=== PATIENT | male | born 1950 | race Caucasian/White ===

== ENCOUNTER → 2019-06-24 09:38 | Outpatient (CLI) | payer MEDICARE, SELFPAY | PROVIDERS: Referring Provider Physical Medicine & Rehabilitation; Visit Provider Physical Medicine & Rehabilitation | DX: M54.2 Cervicalgia (principal); Z53.20 Procedure and treatment not carried out because of patient's decision for unspecified reasons ==

== ENCOUNTER → 2020-01-11 11:22 | Outpatient (CLI) | payer MEDICARE, MEDICAID, SELFPAY ==
[2020-01-11 12:20] LABS: Add Manual Diff / Slide Review NO; Basophils Absolute Auto 0 /uL (0-100); Basophils Percent Auto 0.4 % (0-2); Eosinophils Absolute Auto 100 /uL (0-450); Eosinophils Percent Auto 1.6 % (2-4); Hematocrit 44.8 % (41-53); Hemoglobin 14.5 g/dL (13.5-17.5); Lymphocytes Absolute Auto 1700 /uL (1100-4500); Lymphocytes Percent Auto 23.2 % (25-40); Mean Corpuscular HGB Conc 32.4 % (30-36); Mean Corpuscular Hemoglobin 30.6 PG (26-34); Mean Corpuscular Volume 94.2 fL (80-100); Monocytes Absolute Auto 600 /uL (0-900); Monocytes Percent Auto 8.3 % (3-14); Neutrophils Absolute Auto 4800 /uL (1500-7000); Neutrophils Percent Auto 66.5 % (50-75); Platelet Count 243 X10^3/uL (150-400); Red Blood Cell Count 4.76 X10^6/uL (4.5-5.9); Red Cell Distribution Width 13.4 % (11.6-14.8); White Blood Cell Count 7.2 X10^3/uL (4.5-11.0)
[2020-01-11 13:04] LABS: Alanine Aminotransferase 23 IU/L (<50); Albumin 4.5 g/dL (3.5-5.0); Albumin Globulin Ratio 1.7 (1.0-2.8); Alkaline Phosphatase 81 U/L (38-126); Aspartate Aminotransferase 27 IU/L (17-59); BUN Creatinine Ratio 24.3 (6-22); Bilirubin Total 0.6 mg/dL (0.2-1.3); Blood Urea Nitrogen 17 mg/dL (9-20); Calcium 9.4 mg/dL (8.4-10.2); Carbon Dioxide 30 mmol/L (22-32); Chloride 105 mmol/L (98-107); Cholesterol 215 mg/dL (140-199); Estimated Glomerular Filt Rate > 60.0 mL/min (>60); Globulin 2.6 g/dL (1.7-4.1); Glucose 86 mg/dL (80-110); HDL Cholesterol 54 mg/dL (40-60); HEMOLYSIS < 15 (0-50); LDL Cholesterol Calculated 143 mg/dL (<100); Potassium 4.1 mmol/L (3.4-5.1); Sodium 141 mmol/L (137-145); Total Protein 7.1 g/dL (6.3-8.2); Triglycerides 90 mg/dL (35-150)
== END ==
DX: G80.1 Spastic diplegic cerebral palsy (principal); Z79.891 Long term (current) use of opiate analgesic; R79.89 Other specified abnormal findings of blood chemistry; Z86.79 Personal history of other diseases of the circulatory system
CPT/HCPCS: 36415; 80053; 80061; 85025

== ENCOUNTER → 2020-06-07 11:19 | Outpatient (CLI) | payer MEDICARE, MEDICAID, SELFPAY ==
[2020-06-07 11:51] LABS: Add Manual Diff / Slide Review NO; Basophils Absolute Auto 0 /uL (0-100); Basophils Percent Auto 0.6 % (0-2); Eosinophils Absolute Auto 200 /uL (0-450); Eosinophils Percent Auto 2.4 % (2-4); Hematocrit 42.3 % (41-53); Hemoglobin 13.9 g/dL (13.5-17.5); Lymphocytes Absolute Auto 2100 /uL (1100-4500); Mean Corpuscular HGB Conc 32.8 % (30-36); Mean Corpuscular Hemoglobin 30.7 PG (26-34); Mean Corpuscular Volume 93.6 fL (80-100); Monocytes Absolute Auto 600 /uL (0-900); Monocytes Percent Auto 7.3 % (3-14); Neutrophils Absolute Auto 5000 /uL (1500-7000); Neutrophils Percent Auto 62.7 % (50-75); Platelet Count 231 X10^3/uL (150-400); Red Blood Cell Count 4.52 X10^6/uL (4.5-5.9); Red Cell Distribution Width 13.6 % (11.6-14.8); White Blood Cell Count 7.9 X10^3/uL (4.5-11.0)
[2020-06-07 14:15] LABS: Alanine Aminotransferase 16 IU/L (<50); Albumin 4.1 g/dL (3.5-5.0); Albumin Globulin Ratio 1.8 (1.0-2.8); Alkaline Phosphatase 69 U/L (38-126); Aspartate Aminotransferase 21 IU/L (17-59); BUN Creatinine Ratio 17.6 (6-22); Bilirubin Total 0.6 mg/dL (0.2-1.3); Blood Urea Nitrogen 13 mg/dL (9-20); Calcium 10.2 mg/dL (8.4-10.2); Carbon Dioxide 26 mmol/L (22-32); Chloride 105 mmol/L (98-107); Estimated Glomerular Filt Rate > 60.0 mL/min (>60); Globulin 2.3 g/dL (1.7-4.1); Glucose 106 mg/dL (80-110); HEMOLYSIS < 15 (0-50); Potassium 4.4 mmol/L (3.4-5.1); Sodium 138 mmol/L (137-145); Total Protein 6.4 g/dL (6.3-8.2)
[2020-06-07 14:46] LABS: Prostate Specific Antigen 2.56 ng/mL (0.10-4.00)
== END ==
PROVIDERS: Referring Provider Nurse Practitioner Family; Visit Provider Nurse Practitioner Family
DX: Z01.818 Encounter for other preprocedural examination (principal); Z12.5 Encounter for screening for malignant neoplasm of prostate
CPT/HCPCS: 36415; 80053; 84153; 85025; G0103

== ENCOUNTER → 2021-03-28 09:47 | Outpatient (CLI) | payer MEDICARE, MEDICAID, SELFPAY ==
[2021-03-28 11:10] LABS: Add Manual Diff / Slide Review NO; Basophils Absolute Auto 0 /uL (0-100); Basophils Percent Auto 0.5 % (0-2); Eosinophils Absolute Auto 100 /uL (0-450); Eosinophils Percent Auto 1.5 % (2-4); Hematocrit 41.1 % (41-53); Hemoglobin 13.9 g/dL (13.5-17.5); Lymphocytes Absolute Auto 1700 /uL (1100-4500); Lymphocytes Percent Auto 28.9 % (25-40); Mean Corpuscular HGB Conc 33.8 % (30-36); Mean Corpuscular Hemoglobin 31.4 PG (26-34); Mean Corpuscular Volume 92.8 fL (80-100); Monocytes Absolute Auto 500 /uL (0-900); Monocytes Percent Auto 8.3 % (3-14); Neutrophils Absolute Auto 3500 /uL (1500-7000); Neutrophils Percent Auto 60.8 % (50-75); Platelet Count 241 X10^3/uL (150-400); Red Blood Cell Count 4.43 X10^6/uL (4.5-5.9); Red Cell Distribution Width 13.3 % (11.6-14.8); White Blood Cell Count 5.8 X10^3/uL (4.5-11.0)
[2021-03-28 11:40] LABS: Alanine Aminotransferase 22 IU/L (<50); Albumin 4.4 g/dL (3.5-5.0); Albumin Globulin Ratio 1.9 (1.0-2.8); Alkaline Phosphatase 64 U/L (38-126); Aspartate Aminotransferase 25 IU/L (17-59); BUN Creatinine Ratio 20.8 (6-22); Bilirubin Total 0.7 mg/dL (0.2-1.3); Blood Urea Nitrogen 16 mg/dL (9-20); Carbon Dioxide 28 mmol/L (22-32); Chloride 107 mmol/L (98-107); Estimated Glomerular Filt Rate > 60.0 mL/min (>60); Globulin 2.3 g/dL (1.7-4.1); Glucose 97 mg/dL (80-110); HEMOLYSIS < 15 (0-50); Potassium 4.4 mmol/L (3.4-5.1); Sodium 142 mmol/L (137-145); Total Protein 6.7 g/dL (6.3-8.2)
[2021-03-28 12:07] LABS: Prostate Specific Antigen Scrn 2.53 ng/mL (0.1-4.0)
== END ==
PROVIDERS: PCP Nurse Practitioner Family; Referring Provider Nurse Practitioner Family; Visit Provider Nurse Practitioner Family
DX: Z79.891 Long term (current) use of opiate analgesic (principal); Z12.5 Encounter for screening for malignant neoplasm of prostate
CPT/HCPCS: 36415; 80053; 85025; G0103

== ENCOUNTER 2022-06-17 10:42 | Emergency (ER) | payer OTHER, MEDICAID, SELFPAY ==
[2022-06-17] VITALS (11 sets, daily range): BP systolic 153–181; BP diastolic 72–88; PULSE 62–77; RESP 16–20; TEMP 36.3; O2SAT 92–94
[2022-06-17 11:08] LABS: Add Manual Diff / Slide Review NO; Basophils Absolute Auto 0 /uL (0-100); Basophils Percent Auto 0.5 % (0-2); Eosinophils Absolute Auto 100 /uL (0-450); Eosinophils Percent Auto 2.2 % (2-4); Hematocrit 41.5 % (41-53); Hemoglobin 14.1 g/dL (13.5-17.5); Lymphocytes Absolute Auto 1100 /uL (1100-4500); Mean Corpuscular Hemoglobin 31.3 PG (26-34); Mean Corpuscular Volume 92.1 fL (80-100); Monocytes Absolute Auto 600 /uL (0-900); Monocytes Percent Auto 9.3 % (3-14); Neutrophils Absolute Auto 4100 /uL (1500-7000); Platelet Count 195 X10^3/uL (150-400); Red Blood Cell Count 4.51 X10^6/uL (4.5-5.9); Red Cell Distribution Width 12.9 % (11.6-14.8); White Blood Cell Count 5.9 X10^3/uL (4.5-11.0)
[2022-06-17 11:21] LABS: Alanine Aminotransferase 25 IU/L (<50); Albumin 4.2 g/dL (3.5-5.0); Albumin Globulin Ratio 1.4 (1.0-2.8); Alkaline Phosphatase 78 U/L (38-126); Aspartate Aminotransferase 22 IU/L (17-59); BUN Creatinine Ratio 12.4 (6-22); Blood Urea Nitrogen 20 mg/dL (9-20); Calcium 9.9 mg/dL (8.4-10.2); Carbon Dioxide 34 mmol/L (22-32); Chloride 100 mmol/L (98-107); Estimated Glomerular Filt Rate 45 mL/min (>60); Globulin 2.9 g/dL (1.7-4.1); Glucose 89 mg/dL (80-110); HEMOLYSIS < 15 (0-50); Lipase 44 U/L (23-300); Potassium 4.7 mmol/L (3.4-5.1); Sodium 140 mmol/L (137-145); Total Protein 7.1 g/dL (6.3-8.2)
--- NOTE | 2022-06-17 11:39 | ED_ITS ---
HPI - Abdominal Pain General Chief Complaint: Abdominal Pain Stated Complaint: possible Appendicitis/back pain Time Seen by Provider: 06/17/22 10:51 Source: patient Mode of arrival: Wheelchair History of Present Illness HPI narrative: Patient is 71-year-old male history of cerebral palsy, next stimulator, arthritis, chronic pain presenting today with right lower quadrant pain. He reports that it has been going on for about a week not necessarily radiating. He has been constipated off and on but has had bowel movements. He has low-g rade nausea no vomiting. He is had a decrease in appetite. Denies any chest pain or shortness of breath. He does report that his legs and ankles are more swollen than normal. Related Data Home Medications Medication Instructions Recorded Confirmed celecoxib 200 mg capsule (Celebrex) 200 mg PO QDAY ##0 06/10/11 06/17/22 baclofen 10 mg tablet 10 mg PO TID PRN Muscle Spasm 06/17/22 06/17/22 fluticasone propionate 50 1 spray intranasal DAILY 06/17/22 06/17/22 mcg/actuation nasal spray,suspension morphine 15 mg tablet,extended 15 mg PO BID 06/17/22 06/17/22 release oxycodone 10 mg tablet 10 mg PO TID PRN Pain (Scale Score 06/17/22 06/17/22 7-10) Previous Rx's Medication Instructions Recorded ondansetron 4 mg disintegrating 4 mg PO Q8H PRN nausea and 06/17/22 tablet vomiting #10 tabs Allergies Allergy/AdvReac Type Severity Reaction Status Date / Time No Known Drug Allergies Allergy Verified 06/17/22 11:11 Review of Systems Review of Systems ROS Unobtainable: All systems reviewed & are unremarkable except as noted in HPI and below Patient History Medical History (Updated 06/17/22 @ 14:06 by Cintia Cedeño DO) Cerebral palsy Chronic pain Social History Smoking Status: Never smoker Smoking Status: Never smoker alcohol intake frequency: 0-2 drinks per day Substance Use Type: does not use Exam Initial Vital Signs Initial Vital Signs: Vital Signs Pulse Rate 74 06/17/22 10:50 Blood Pressure 181/88 H 06/17/22 10:50 Pulse Oximetry 92 06/17/22 10:50 GENERAL: Alert 71-year-old male with cerebral palsy features awake alert oriented HEENT: Head atraumatic,EOMI, pupils reactive, face symmetric, moist mucous membranes CARDIOVASCULAR: Regular rate and rhythm without murmurs, rubs or gallops. RESPIRATORY: Breath sounds equal bilaterally, no wheezes rales or rhonchi. ABDOMEN: Soft, mild right lower quadrant tenderness no guarding no EXTREMITIES: Normal range of motion, no clubbing or edema. Neurovascularly intact NEUROLOGICAL: Alert and oriented x4. SKIN: Hyperpigmented skin noted on abdomen but right-sided only. Patient reports that it is from a heating pad from a couple weeks. That is old and not new Course Orders Ordered: ED Orders 06/17/22 11:40 CT abdomen pelvis w con Stat Discontinued Medications Hydromorphone HCl (Hydromorphone 0.5 Mg Inj) 0.5 mg IV NOW ONE Stop: 06/17/22 11:41 Last Admin: 06/17/22 11:52 Dose: 0.5 mg Documented By: JOB Sodium Chloride (Normal Saline 0.9%) 1,000 mls @ 1,000 mls/hr IV BOLUS ONE Stop: 06/17/22 12:39 Last Infusion: 06/17/22 12:39 Dose: 0 mls/hr Documented By: Admin: 06/17/22 11:46 Dose: 1,000 mls/hr Documented By: JOB Ondansetron HCl (Ondansetron 4 Mg Odt) 4 mg PO NOW PRN PRN Reason: Nausea And Vomiting Ondansetron HCl (Ondansetron 4 Mg/2 Ml Inj) 4 mg IV NOW PRN PRN Reason: Nausea And Vomiting Vital Signs Vital signs: Vital Signs - 8 hr 06/17/22 12:23 06/17/22 12:23 06/17/22 12:30 Pulse Rate 65 66 Respiratory Rate 20 Blood Pressure 153/72 H Pulse Oximetry 92 06/17/22 12:31 06/17/22 12:31 06/17/22 13:00 Pulse Rate 66 Respiratory Rate Blood Pressure 154/83 H 167/86 H Pulse Oximetry 06/17/22 13:00 06/17/22 13:30 06/17/22 13:30 Pulse Rate 62 72 Respiratory Rate Blood Pressure 157/77 H Pulse Oximetry 93 06/17/22 14:00 06/17/22 14:00 Pulse Rate 77 Respiratory Rate Blood Pressure 161/85 H Pulse Oximetry 93 MDM - Abdominal Pain Lab Data 06/17/22 10:57 06/17/22 10:57 Labs: Lab Results 06/17/22 06/17/22 Range/Units 10:57 10:57 WBC 5.9 (4.5-11.0) X10^3/uL RBC 4.51 (4.5-5.9) X10^6/uL Hgb 14.1 (13.5-17.5) g/dL Hct 41.5 (41-53) % MCV 92.1 (80-100) fL MCH 31.3 (26-34) PG MCHC 34.0 (30-36) % RDW 12.9 (11.6-14.8) % Plt Count 195 (150-400) X10^3/uL Neut % (Auto) 69.0 (50-75) % Lymph % (Auto) 19.0 L (25-40) % Burnett % (Auto) 9.3 (3-14) % Eos % (Auto) 2.2 (2-4) % Baso % (Auto) 0.5 (0-2) % Neut # (Auto) 4100 (6106-8777) /uL Lymph # (Auto) 1100 (8097-3006) /uL Burnett # (Auto) 600 (0-900) /uL Eos # (Auto) 100 (0-450) /uL Baso # (Auto) 0 (0-100) /uL Sodium 140 (137-145) mmol/L Potassium 4.7 (3.4-5.1) mmol/L Chloride 100 (98-107) mmol/L Carbon Dioxide 34 H (22-32) mmol/L BUN 20 (9-20) mg/dL Creatinine 1.61 H (0.66-1.25) mg/dL Estimated GFR 45 L (>60) mL/min BUN/Creatinine Ratio 12.4 (6-22) Glucose 89 (80-110) mg/dL Calcium 9.9 (8.4-10.2) mg/dL Total Bilirubin 1.0 (0.2-1.3) mg/dL AST 22 (17-59) IU/L ALT 25 (<50) IU/L Alkaline Phosphatase 78 (38-126) U/L Total Protein 7.1 (6.3-8.2) g/dL Albumin 4.2 (3.5-5.0) g/dL Globulin 2.9 (1.7-4.1) g/dL Albumin/Globulin Ratio 1.4 (1.0-2.8) Lipase 44 (23-300) U/L Point of care testing: Urine Dip Bedside Urine Glucose Negative Bedside Urine Bilirubin - Negative Bedside Urine Ketone - Negative Urine Specific Menan 1.015 Bedside Urine Occult Blood - Negative Bedside Urine pH 6.0 Bedside Urine Protein - Negative Bedside Urine Urobilinogen - Negative Bedside Urine Nitrite - Negative Bedside Urine Leukocytes - Negative Esterase Imaging Data CT scan - abdomen/pelvis: Radiologist's Impression: PROCEDURE:? CT ABDOMEN PELVIS W CON ? INDICATIONS:? rlq pain ? TECHNIQUE:? After the administration of IV contrast, axial sections were acquired from the lung bases to the pubic symphysis.? Coronal and sagittal reformats were performed.? For radiation dose reduction, the following was used:? automated exposure control, adjustment of mA and/or kV according to patient size. ? COMPARISON:? None. ? FINDINGS:? Image quality:? Excellent.? ? Lung bases:? Trace bilateral pleural few.? Bilateral atelectasis.? ? Heart:? RCA coronary artery calcifications. ? ? ABDOMEN: Liver:? No focal lesion. Gallbladder:? Unremarkable.? ? Biliary ducts:? Unremarkable.? ? Pancreas:? Unremarkable.? ? Spleen:? No splenomegaly.? Small splenule. Adrenal Glands:? No nodule. Kidneys and Ureters:? Mild right hydronephrosis.? Obstructing calculus at the [facility] UVJ measuring 0.3 cm, ().? Additional small bilateral punctate nonobstructing kidney stones.? ? ? Stomach and Bowel:? Stomach, small bowel loops, and colon are unremarkable.? Normal appendix, (). Peritoneum:? No abnormal intraperitoneal fluid.? No free air.? ? Ventral Wall: ? Tiny umbilical hernia. Abdominal Nodes:? No retroperitoneal or mesenteric adenopathy by size criteria.? Vessels:? Aorta and inferior vena cava are normal in size.? Moderate calcified plaque.? ? PELVIS: Pelvic Organs:? Unremarkable.? ? Bladder:? Unremarkable.? ? Pelvic Nodes: No enlarged lymph nodes.? Miscellaneous: No inguinal hernias are seen.? Right lower back spine stimulator.? ? ? Bones:? No suspicious lesion.? Multilevel DDD. ? ? IMPRESSION:? 1. Mild right hydronephrosis.? Obstructing calculus at the right UVJ measuring 0.3 cm. ? 2. Additional small bilateral nonobstructing kidney stones. ? 3. Normal appendix. ? 4. Trace pleural effusions and bibasilar atelectasis.? ? Dictated by: Ramírez Chowdary M.D. on 06/17/2022 at 12:45 ? ? [facility] Narrative Medical decision making narrative: The patient is 71-year-old male history of CP chronic pain presenting today with right lower quadrant pain. Blood work is overall reassuring without leukocytosis electrolyte abnormality . He is found to have mild IRENE with a creatinine of 1.611 year ago it was 0.7. He reports not eating or drinking very much due to some pain and constipation issues. CT confirms a 3 mm stone on the right side with mild right hydronephrosis. No evidence of appendicitis. He has multiple pain medications at home does not need anything else for pain at this time. Discharge Plan Departure Patient Disposition: Home Clinical Impression: Kidney stones Instructions: DI for Kidney Stones Activity Restrictions/Additional Instructions: *You have been diagnosed with kidney stone *What to do: This should pass on its own over the next couple of days. Please stay hydrated. *Continue to take medications as directed Zofran 4 mg every 8 hours if needed for nausea vomiting--> [facility] Continue taking Celebrex daily Continue your own pain management regimen *Follow up with your primary care provider in 2-3 days or call [phone] *Return to ER if you should have increasing pain fever persistent vomiting or any new, worsening or concerning symptoms Prescriptions: New ondansetron 4 mg tablet,disintegrating 4 mg PO Q8H PRN (Reason: nausea and vomiting) Qty: 10 0RF No Action celecoxib [Celebrex] 200 MG capsule 200 mg PO QDAY Qty: 0 baclofen 10 mg tablet 10 mg PO TID PRN (Reason: Muscle Spasm) morphine 15 mg tablet extended release 15 mg PO BID fluticasone propionate 50 mcg/actuation spray,suspension 1 spray INTRANASAL DAILY oxycodone 10 mg tablet 10 mg PO TID PRN (Reason: Pain (Scale Score 7-10)) Referrals: Rosangela Ordoñez ARNP [Primary Care Provider] - Stand Alone Forms: Patient Portal/API
--- NOTE | 2022-06-17 11:40 | DI.CT.S_ITS ---
PROCEDURE: CT ABDOMEN PELVIS W CON INDICATIONS: rlq pain TECHNIQUE: After the administration of IV contrast, axial sections were acquired from the lung bases to the pubic symphysis. Coronal and sagittal reformats were performed. For radiation dose reduction, the following was used: automated exposure control, adjustment of mA and/or kV according to patient size. COMPARISON: None. FINDINGS: Image quality: Excellent. Lung bases: Trace bilateral pleural few. Bilateral atelectasis. Heart: RCA coronary artery calcifications. ABDOMEN: Liver: No focal lesion. Gallbladder: Unremarkable. Biliary ducts: Unremarkable. Pancreas: Unremarkable. Spleen: No splenomegaly. Small splenule. Adrenal Glands: No nodule. Kidneys and Ureters: Mild right hydronephrosis. Obstructing calculus at the right UVJ measuring 0.3 cm, (). Additional small bilateral punctate nonobstructing kidney stones. Stomach and Bowel: Stomach, small bowel loops, and colon are unremarkable. Normal appendix, (64). Peritoneum: No abnormal intraperitoneal fluid. No free air. Ventral Wall: Tiny umbilical hernia. Abdominal Nodes: No retroperitoneal or mesenteric adenopathy by size criteria. Vessels: Aorta and inferior vena cava are normal in size. Moderate calcified plaque. PELVIS: Pelvic Organs: Unremarkable. Bladder: Unremarkable. Pelvic Nodes: No enlarged lymph nodes. Miscellaneous: No inguinal hernias are seen. Right lower back spine stimulator. Bones: No suspicious lesion. Multilevel DDD. IMPRESSION: 1. Mild right hydronephrosis. Obstructing calculus at the right UVJ measuring 0.3 cm. 2. Additional small bilateral nonobstructing kidney stones. 3. Normal appendix. 4. Trace pleural effusions and bibasilar atelectasis. Dictated by: Ramírez Chowdary M.D. on 06/17/2022 at 12:45 Approved by: Ramírez Chowdary M.D. on 06/17/2022 at 12:52
[2022-06-17] MEDS: SODIUM CHLORIDE 0.9% 1,000 ML 1000 ML IV (11:46)
[2022-06-17] MEDS: HYDROMORPHONE 0.5 MG INJ IV (11:52)
== END 2022-06-17 14:30 | disposition home or self-care (01) ==
PROVIDERS: Emergency Provider Emergency Medicine; PCP Nurse Practitioner Family
DX: N20.0 Calculus of kidney (principal); R11.0 Nausea; R10.9 Unspecified abdominal pain
CPT/HCPCS: 36415; 74177; 80053; 81003; 83690; 85025; 93005; 93010; 99284; J1170

== ENCOUNTER → 2022-09-30 14:07 | Outpatient (CLI) | payer OTHER, MEDICAID, SELFPAY ==
[2022-09-30 15:10] LABS: Appearance Urine UA CLEAR; Bilirubin Urine UA NEGATIVE (NEGATIVE); Color Urine UA YELLOW; Glucose Urine UA NEGATIVE (Negative); Ketones Urine UA NEGATIVE (NEGATIVE); Leukocyte Esterase Urine UA NEGATIVE (NEGATIVE); Nitrite Urine UA NEGATIVE (Negative); Occult Blood Urine UA NEGATIVE (Negative); Protein Urine UA NEGATIVE (Negative); Specific Gravity Urine UA <=1.005 (1.000-1.035); pH Urine UA 6.5 (4.5-8.0)
[2022-09-30 15:34] LABS: Bacteria Urine None Seen; Culture Indicated Urine Cult Not Indicated; RBC Urine None Seen (0-5/HPF); Squamous Epithelial Cell Urine None Seen (0-5/HPF); WBC Urine None Seen (0-5/HPF)
== END ==
PROVIDERS: PCP Pediatrics; Referring Provider Pediatrics; Visit Provider Pediatrics
DX: R39.15 Urgency of urination (principal)
CPT/HCPCS: 81001

== ENCOUNTER → 2023-03-19 09:09 | Outpatient (CLI) | payer OTHER, MEDICAID, SELFPAY ==
[2023-03-19 11:03] LABS: Alanine Aminotransferase 27 IU/L (<50); Albumin 4.2 g/dL (3.5-5.0); Albumin Globulin Ratio 1.8 (1.0-2.8); Alkaline Phosphatase 71 U/L (38-126); Aspartate Aminotransferase 24 IU/L (17-59); BUN Creatinine Ratio 23.8 (6-22); Bilirubin Total 0.8 mg/dL (0.2-1.3); Blood Urea Nitrogen 20 mg/dL (9-20); Carbon Dioxide 27 mmol/L (22-32); Chloride 102 mmol/L (98-107); Estimated Glomerular Filt Rate > 60 mL/min (>60); Globulin 2.4 g/dL (1.7-4.1); Glucose 76 mg/dL (80-110); HEMOLYSIS < 15 (0-50); Potassium 4.7 mmol/L (3.4-5.1); Sodium 138 mmol/L (137-145); Total Protein 6.6 g/dL (6.3-8.2)
== END ==
PROVIDERS: Family Provider Pediatrics; PCP Pediatrics; Referring Provider Internal Medicine; Visit Provider Internal Medicine
DX: R79.89 Other specified abnormal findings of blood chemistry (principal)
CPT/HCPCS: 36415; 80053

== ENCOUNTER → 2023-07-01 11:18 | Outpatient (CLI) | payer MEDICARE, SELFPAY ==
[2023-07-01 12:55] LABS: Hemoglobin 13.2 g/dL (13.5-17.5); Mean Corpuscular HGB Conc 33.8 % (30-36); Mean Corpuscular Hemoglobin 31.5 PG (26-34); Platelet Count 230 X10^3/uL (150-400); Red Blood Cell Count 4.19 X10^6/uL (4.5-5.9); Red Cell Distribution Width 13.1 % (11.6-14.8); White Blood Cell Count 6.1 X10^3/uL (4.5-11.0)
[2023-07-01 13:36] LABS: Alanine Aminotransferase 22 IU/L (<50); Albumin 4.3 g/dL (3.5-5.0); Albumin Globulin Ratio 1.9 (1.0-2.8); Alkaline Phosphatase 76 U/L (38-126); Aspartate Aminotransferase 23 IU/L (17-59); BUN Creatinine Ratio 26.5 (6-22); Bilirubin Total 0.6 mg/dL (0.2-1.3); Blood Urea Nitrogen 22 mg/dL (9-20); Calcium 9.9 mg/dL (8.4-10.2); Carbon Dioxide 29 mmol/L (22-32); Chloride 104 mmol/L (98-107); Cholesterol 202 mg/dL (140-199); Estimated Glomerular Filt Rate > 60 mL/min (>60); Globulin 2.3 g/dL (1.7-4.1); Glucose 84 mg/dL (80-110); HDL Cholesterol 39 mg/dL (40-60); HEMOLYSIS < 15 (0-50); LDL Cholesterol Calculated 138 mg/dL (<100); Potassium 4.5 mmol/L (3.4-5.1); Sodium 140 mmol/L (137-145); Total Protein 6.6 g/dL (6.3-8.2); Triglycerides 125 mg/dL (35-150)
== END ==
PROVIDERS: Family Provider Pediatrics; PCP Internal Medicine; Referring Provider Internal Medicine; Visit Provider Internal Medicine
DX: G80.1 Spastic diplegic cerebral palsy (principal); E78.2 Mixed hyperlipidemia
CPT/HCPCS: 36415; 80053; 80061; 85027

== ENCOUNTER → 2023-09-10 17:09 | Outpatient (CLI) | payer MEDICARE, SELFPAY ==
[2023-09-12 13:36] LABS: Fecal Immunochemical Test Negative (Negative)
== END ==
PROVIDERS: Family Provider Pediatrics; PCP Internal Medicine; Referring Provider Internal Medicine; Visit Provider Internal Medicine
DX: Z12.11 Encounter for screening for malignant neoplasm of colon (principal)
CPT/HCPCS: 82274

== ENCOUNTER 2023-12-09 13:45 | Outpatient (RCR) | payer MEDICARE, SELFPAY ==
--- NOTE | 2023-10-10 15:57 | PT.OIE ---
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 Tinea cruris Tinnitus (~2019) Venous (peripheral) insufficiency Past Surgical History (Last Reviewed 09/09/23 @ 12:29 by Ramiro Luna MD) Anesthesia History of hernia repair (~2009) History of neck surgery (~2014) History of surgery (~2018) Visit Care Team Role Provider Type Dick Venegas MD Family Provider Non-Staff Specialty: Internal Medicine Pediatrics Address: [address] [place] [address] Email: [email or web address] Ramiro Luna MD Attending Provider Physician Primary Care Provider Referring Provider Specialty: Internal Medicine Address: [address] [place] [address] Email: [email or web address] Physical Therapy Initial Evaluation PT-OP-A Visit Information Start: 10/10/23 07:27 Freq: Status: Active Protocol: Document 10/10/23 09:46 NM (Rec: 10/10/23 10:33 NM [id number]) Out-Patient Physical Therapy Visit Information Visit Information Visit Type Initial Evaluation Visit Note racihd Chacon Visit Start Time 09:46 Visit Stop Time 10:30 Visit Number 1 Evaluation Information Evaluation Date 10/10/23 Precautions Precautions Cerebral palsy, fall risk, limited L UE use, postural changes lead to dizziness PT-OP-B Current Condition Start: 10/10/23 07:27 Freq: Status: Active Protocol: Document 10/10/23 09:46 NM (Rec: 10/10/23 10:33 NM [id number]) Current Condition History of Current Condition Onset Date DOS 08/05/23 Current Complaints pain, mobility, strength History of Current Condition Pt presents s/p R TKA on . He was in a SNF following his surgery for 1 month. Presents with live-in helper, Ines. Pt was using FWW post -operatively but recently began using spc in R hand. 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 States walker aggravates L arm. Pt reports getting stronger overall since discharge from SNF. He had PT at [facility], PT. States ambulated 400 ft yesterday with spc, R knee aches him. Pt has not fallen in 1.5 years. Prior to surgery, pt was using FWW and spc. Pt also had spacer placed in his RLE due to shorter length (esta. during surgery), which has caused some cramping. Has had previous PT for knee (last fall) and for his L arm. He does some workouts at home, including sit and be fit, LAQ, marches. 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 No longer on baclofen due side effects. Pt does have stairs in his home, states can do without any struggle. Treatment Goals Patient/Caregiver Goals get up from floor, improve walking, strength PT-OP-C Subjective Start: 10/10/23 07:27 Freq: Status: Active Protocol: Document 10/10/23 09:46 NM (Rec: 10/10/23 10:33 NM [id number]) OP-PT Subjective Patient Comments Patient Comments Pt consents to participate in evaluation. States he is feeling stronger now that he is out of the SNF Patient Questionnaires Lower Extremity Functional Scale LEFS Score 15/80 OP-PT Pain Assessment Location R knee Intensity 1 Scale Used Numeric (0 - 10) Description Aching Frequency Frequent Pain Aggravating Factors ADL's,Activity,Exercise, Standing,Walking Pain Alleviating Factors Medication Other Pain Alleviating Factors biofreeze, protein drinks Comments Pain Comments Pt reports that he has more pain in his LUE than his R knee PT-OP-E Functional Tests Start: 10/10/23 07:27 Freq: Status: Active Protocol: Document 10/10/23 09:46 NM (Rec: 10/10/23 16:52 NM [id number]) Functional Tests 2 Minute Walk Test Distance 93 ft Device Used spc Comments CGA; fatiguing; mild knee pain ; strong hip ADD/valgus/ pronation PT-OP-F Manual Assessment Start: 10/10/23 07:27 Freq: Status: Active Protocol: Document 10/10/23 09:46 NM (Rec: 10/10/23 10:33 NM [id number]) Manual Assessments Soft Tissue Assessment Soft Tissue Mobility Assessment Increased tone and decreased tissue length of hamstrings B, L adductors; increased ankle DF B Joint Mobility Assessment Joint Mobility Assessment Decreased PROM and AROM of R knee, hip. Decreased AROM and increased stability due to spasticity of LLE PT-OP-G Mobility & Gait Start: 10/10/23 07:27 Freq: Status: Active Protocol: Document 10/10/23 09:46 NM (Rec: 10/10/23 16:54 NM [id number]) OP Mobility Evaluation Bed Mobility Supine to and from Sit min A Transfers Sit to Stand with min A from low chair, several attempts CGA to steady with initial balance and hand assist to spc , several attempts to rise OP Gait Assessment Gait Gait Assistance Required: Contact Guard Assist Distance (Feet) 93 Assistive Devices Assistive Device Gait Belt,Straight Cane Gait Deviations General Gait Pattern Antalgic,Decreased Stride Length,Decreased Feet Clearance,Flexed Trunk,Narrow Based Gait Factors Limiting Gait Function Factors Limiting Gait Function Abnormal Tonal Influences, Decreased Activity Tolerance, Decreased Strength,Limited Range of Motion,Pain,Poor Balance Comments Gait Comments Demos strong B hip adduction into valgus with pronation, B flexed knees and increased ankle dorsiflexion. spc in R hand with moderate dependence for stability and to assist with LLE. Decreased foot clearance PT-OP-H Neuro Start: 10/10/23 07:27 Freq: Status: Active Protocol: Document 10/10/23 09:46 NM (Rec: 10/10/23 10:33 NM [id number]) Muscle Tone Tone Assessment Left Lower Extremity Flexor Tone Description Moderate Hypertonicity Muscle Tone Comments Modified paloma scale: 3 L knee PT-OP-J Posture/Palpation/Skin Start: 10/10/23 07:27 Freq: Status: Active Protocol: Document 10/10/23 09:46 NM (Rec: 10/10/23 16:30 NM [id number]) Posture Evaluation Position Standing Head/C-Spine Posture Forward Head T-Spine Posture Increased Kyphosis Arm Posture (L) Internally Rotated Pelvis Posture Anteriorly Tilted Weight Distribution Weight Shifted Right Hip Posture (L) Internally Rotated,(L) Adducted,(R) Adducted Knee Posture (L) Genu Valgus,(R) Genu Valgus,(L) Excess Flexion,(R) Excess Flexion Patellar Posture (L) Superior,(R) Superior Ankle/Foot Posture (L) Dorsiflexed,(R) Dorsiflexed,(L) Pronated Palpation Assessment Location R knee Palpation Details No tenderness along incision or joint line, patella Increased edema along entire lower RLE to knee Skin Assessment Incisional Assessment Incision Appearance/Comments Incision intact and healing well without scabbing, no signs or symptoms of infection PT-OP-K Range of Motion Start: 10/10/23 07:27 Freq: Status: Active Protocol: Document 10/10/23 09:46 NM (Rec: 10/10/23 10:33 NM [id number]) Knee Goniometric Range of Motion Knee Right Flexion Active (degrees) 80 Extension Active (degrees) 18 Left Flexion Active (degrees) 90 Extension Active (degrees) 9 Ankle and Foot Goniometric Range of Motion Ankle and Foot Right Comments Ankle DF to neutral Left Comments Ankle DF to neutral PT-OP-M Strength Start: 10/10/23 07:27 Freq: Status: Active Protocol: Document 10/10/23 09:46 NM (Rec: 10/10/23 10:33 NM [id number]) Hip Strength Hip Manual Muscle Testing Right Flexion (L2) 3+ Fair+ Extension (S1) 3+ Fair+ Abduction 3+ Fair+ Adduction 4 Good Left Flexion (L2) 3+ Fair+ Extension (S1) 3+ Fair+ Abduction 3+ Fair+ Adduction 3+ Fair+ Comments strength influenced by tone Knee Strength Knee Manual Muscle Testing Right Flexion (S2) 3+ Fair+ Extension (L3) 3+ Fair+ Comments No pain with resisted motion Left Flexion (S2) 3+ Fair+ Extension (L3) 3+ Fair+ Ankle/Foot Strength Ankle and Foot Manual Muscle Testing Right Dorsiflexion (L4) 3 Fair Plantarflexion (S1) 3 Fair Left Dorsiflexion (L4) 3 Fair Plantarflexion (S1) 3 Fair Comments tested in sitting PT-OP-Q Treatments Start: 10/10/23 07:27 Freq: Status: Active Protocol: Document 10/10/23 09:46 NM (Rec: 10/10/23 16:30 NM [id number]) Therapeutic Exercises Sitting Exercises calf stretch Sitting Exercise Name 1. soleus, 2. gastrocnemius Side right Equipment Used gait belt Reps/Minutes 2x60 ea hamstring stretch Side right Equipment Used gait belt, foot elevated on trash can Reps/Minutes 2x60 Other Exercises self soft tissue mobilization Other Exercise Name hamstring, calf, quad Side right Equipment Used PT hand then pt hand distal > proximal Reps/Minutes 2 minutes Comments educated for gentle circular motions, can use rolling pin PT-OP-T Assessment and Plan Start: 10/10/23 07:27 Freq: Status: Active Protocol: Document 10/10/23 09:46 NM (Rec: 10/10/23 10:33 NM [id number]) Physical Therapy Assessment Rehab Potential Rehabilitation Potential Fair Evaluation Complexity Number of Personal Factors/Comorbidities 3 or More Number of Body Systems Impaired 3 Clinical Presentation at Evaluation Stable Impairments Impairments Activity Tolerance,Balance, Edema,Functional Activities, Functional Mobility,Gait, Integument,Pain,Posture,ROM, Sensation,Soft Tissue Mobility ,Strength,Tone,Transfers Goals Five Impairment R hip and knee strength 3+/5 globally Short Term Goal (STG) Pt will improve R global hip and knee strength to at least 4-/5 MMT in order to demonstrate increased strength for gait, transfers, and standing endurance STG Duration 6 weeks Correction Goal (LTG) Pt will improve R global hip and knee strength to at least 4/5 MMT in order to demonstrate increased strength for gait, transfers, and standing endurance LTG Duration 12 weeks Four Impairment transfers Short Term Goal (STG) Pt will be able to perform STS transfer using LRAD or 1 hand assist on 1st attempt in order to demonstrate improved BLE strength and initial standing balance STG Duration 8 weeks Negative Turner Goal (LTG) If appropriate, pt will be able to transfer from floor using at least 1 hand assist and with min A or less in order to demonstrate improved BLE strength in case of fall LTG Duration 12 weeks Three Impairment gait 93 ft 2 MWT Short Term Goal (STG) Pt will improve ambulation distance >100 ft with LRAD in order to demonstrate improved tolerance for short community and household ambulation STG Duration 6 weeks Correction Goal (LTG) Pt will improve ambulation distance >150 ft with LRAD in order to demonstrate improved tolerance for short community and household ambulation LTG Duration 12 weeks Two Impairment R knee ext AROM limited to 18 deg Short Term Goal (STG) Pt will improve R knee extension AROM to 10 deg or less in order to demonstrate improved extension for stance, gait, and transfers STG Duration 6 weeks Correction Goal (LTG) Pt will improve R knee extension AROM to 5 deg or less in order to demonstrate improved extension for stance, gait, and transfers LTG Duration 12 weeks One Impairment R knee flexion AROM limited to 80 deg Short Term Goal (STG) Pt will improve R knee flexion AROM to at least 90 deg in order to demonstrate improved mobility for gait, stairs, and transfers STG Duration 6 weeks Negative Turner Goal (LTG) Pt will improve R knee flexion AROM to at least 100 deg in order to demonstrate improved mobility for gait, stairs, and transfers LTG Duration 12 weeks Assessment Summary Assessment Pt presents to clinic s/p R TKA in July 2023. He was admitted to a SNF following release from hospital and then had HHPT, which pt recently completed. Pt is using an spc for gait. He recently transitioned from a FWW, which caused increased pain in his L shoulder. 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 Pt has gait and postural characteristics consistent with dx. Pt's pain is well managed. However, he has significant limitations in B ROM, especially R knee. Pt' s L spasticity also affects R knee ROM and strength. He has impairments in gait, balance, strength, ROM, tone, activity tolerance, and functional mobility. Pt's 2 MWT distance is 93 ft. He has limited number of insurance visits. PT educated pt on exam findings and plan of care. Pt would benefit from skilled PT for progressive strengthening and flexibility, ROM, tone management, and activity tolerance in order to improve mobility following TKA. Physical Therapy Plan Frequency and Duration Frequency of Treatment 1-2/wk Duration of treatment (weeks) 12 Plan of Care Start Date 10/10/23 Plan of Care End Date 01/09/24 Therapeutic Interventions Therapeutic Interventions Balance Training,Coordination Training,Gait Training,Home Exercise Program,Joint Mobilizations,Manual Therapy, Neuromuscular Re-education, Orthotic/Prosthetic Management ,Patient/Caregiver Education, Self-Care/Home Management, Sensory Integration,Soft Tissue Mobilization,Taping, Therapeutic Activities, Therapeutic Exercises Modalities Cold Pack/Ice Massage,Hot Packs Other Therapeutic Interventions spasticity management techniques Next Visit Focus/Plan Next Note Type Treatment Note Next Visit Plan heel slides, TKE, SAQ and LAQ, hip abduction, contract-relax hip abduction/adduction STS
--- NOTE | 2023-10-16 10:54 | PT.OTN ---
Current Diagnoses Stiffness of right knee, not elsewhere classified (10/16/23) Other lack of coordination (10/16/23) Weakness (10/16/23) Presence of right artificial knee joint (10/16/23) Physical Therapy Treatment Note PT-OP-A Visit Information Start: 10/10/23 07:27 Freq: Status: Active Protocol: Document 10/16/23 09:46 NM (Rec: 10/16/23 10:54 NM [id number]) Out-Patient Physical Therapy Visit Information Visit Information Visit Type Treatment Note Visit Note caregiver Ines Visit Start Time 09:48 Visit Stop Time 10:30 Visit Number 2 Evaluation Information Evaluation Date 10/10/23 Precautions Precautions Cerebral palsy, fall risk, limited L UE use, postural changes lead to dizziness PT-OP-B Current Condition Start: 10/10/23 07:27 Freq: Status: Active Protocol: Document 10/10/23 09:46 NM (Rec: 10/10/23 10:33 NM [id number]) Current Condition History of Current Condition Onset Date DOS 08/05/23 Current Complaints pain, mobility, strength History of Current Condition Pt presents s/p R TKA on . He was in a SNF following his surgery for 1 month. Presents with live-in helper, Ines. Pt was using FWW post -operatively but recently began using spc in R hand. 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 States walker aggravates L arm. Pt reports getting stronger overall since discharge from SNF. He had PT at [facility], [facility]. States ambulated 400 ft yesterday with spc, R knee aches him. Pt has not fallen in 1.5 years. Prior to surgery, pt was using FWW and spc. Pt also had spacer placed in his RLE due to shorter length (esta. during surgery), which has caused some cramping. Has had previous PT for knee (last fall) and for his L arm. He does some workouts at home, including sit and be fit, LAQ, marches. 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 No longer on baclofen due side effects. Pt does have stairs in his home, states can do without any struggle. Treatment Goals Patient/Caregiver Goals get up from floor, improve walking, strength PT-OP-C Subjective Start: 10/10/23 07:27 Freq: Status: Active Protocol: Document 10/16/23 09:46 NM (Rec: 10/16/23 10:54 NM [id number]) OP-PT Subjective Patient Comments Patient Comments Pt reporst doing HEP at home, states still 1/10 pain in R knee. PT-OP-E Functional Tests Start: 10/10/23 07:27 Freq: Status: Active Protocol: Document 10/10/23 09:46 NM (Rec: 10/10/23 16:52 NM [id number]) Functional Tests 2 Minute Walk Test Distance 93 ft Device Used spc Comments CGA; fatiguing; mild knee pain ; strong hip ADD/valgus/ pronation PT-OP-F Manual Assessment Start: 10/10/23 07:27 Freq: Status: Active Protocol: Document 10/10/23 09:46 NM (Rec: 10/10/23 10:33 NM [id number]) Manual Assessments Soft Tissue Assessment Soft Tissue Mobility Assessment Increased tone and decreased tissue length of hamstrings B, L adductors; increased ankle DF B Joint Mobility Assessment Joint Mobility Assessment Decreased PROM and AROM of R knee, hip. Decreased AROM and increased stability due to spasticity of LLE PT-OP-G Mobility & Gait Start: 10/10/23 07:27 Freq: Status: Active Protocol: Document 10/10/23 09:46 NM (Rec: 10/10/23 16:54 NM [id number]) OP Mobility Evaluation Bed Mobility Supine to and from Sit min A Transfers Sit to Stand with min A from low chair, several attempts CGA to steady with initial balance and hand assist to spc , several attempts to rise OP Gait Assessment Gait Gait Assistance Required: Contact Guard Assist Distance (Feet) 93 Assistive Devices Assistive Device Gait Belt,Straight Cane Gait Deviations General Gait Pattern Antalgic,Decreased Stride Length,Decreased Feet Clearance,Flexed Trunk,Narrow Based Gait Factors Limiting Gait Function Factors Limiting Gait Function Abnormal Tonal Influences, Decreased Activity Tolerance, Decreased Strength,Limited Range of Motion,Pain,Poor Balance Comments Gait Comments Demos strong B hip adduction into valgus with pronation, B flexed knees and increased ankle dorsiflexion. spc in R hand with moderate dependence for stability and to assist with LLE. Decreased foot clearance PT-OP-H Neuro Start: 10/10/23 07:27 Freq: Status: Active Protocol: Document 10/10/23 09:46 NM (Rec: 10/10/23 10:33 NM [id number]) Muscle Tone Tone Assessment Left Lower Extremity Flexor Tone Description Moderate Hypertonicity Muscle Tone Comments Modified paloma scale: 3 L knee PT-OP-J Posture/Palpation/Skin Start: 10/10/23 07:27 Freq: Status: Active Protocol: Document 10/10/23 09:46 NM (Rec: 10/10/23 16:30 NM [id number]) Posture Evaluation Position Standing Head/C-Spine Posture Forward Head T-Spine Posture Increased Kyphosis Arm Posture (L) Internally Rotated Pelvis Posture Anteriorly Tilted Weight Distribution Weight Shifted Right Hip Posture (L) Internally Rotated,(L) Adducted,(R) Adducted Knee Posture (L) Genu Valgus,(R) Genu Valgus,(L) Excess Flexion,(R) Excess Flexion Patellar Posture (L) Superior,(R) Superior Ankle/Foot Posture (L) Dorsiflexed,(R) Dorsiflexed,(L) Pronated Palpation Assessment Location R knee Palpation Details No tenderness along incision or joint line, patella Increased edema along entire lower RLE to knee Skin Assessment Incisional Assessment Incision Appearance/Comments Incision intact and healing well without scabbing, no signs or symptoms of infection PT-OP-K Range of Motion Start: 10/10/23 07:27 Freq: Status: Active Protocol: Document 10/10/23 09:46 NM (Rec: 10/10/23 10:33 NM [id number]) Knee Goniometric Range of Motion Knee Right Flexion Active (degrees) 80 Extension Active (degrees) 18 Left Flexion Active (degrees) 90 Extension Active (degrees) 9 Ankle and Foot Goniometric Range of Motion Ankle and Foot Right Comments Ankle DF to neutral Left Comments Ankle DF to neutral PT-OP-M Strength Start: 10/10/23 07:27 Freq: Status: Active Protocol: Document 10/10/23 09:46 NM (Rec: 10/10/23 10:33 NM [id number]) Hip Strength Hip Manual Muscle Testing Right Flexion (L2) 3+ Fair+ Extension (S1) 3+ Fair+ Abduction 3+ Fair+ Adduction 4 Good Left Flexion (L2) 3+ Fair+ Extension (S1) 3+ Fair+ Abduction 3+ Fair+ Adduction 3+ Fair+ Comments strength influenced by tone Knee Strength Knee Manual Muscle Testing Right Flexion (S2) 3+ Fair+ Extension (L3) 3+ Fair+ Comments No pain with resisted motion Left Flexion (S2) 3+ Fair+ Extension (L3) 3+ Fair+ Ankle/Foot Strength Ankle and Foot Manual Muscle Testing Right Dorsiflexion (L4) 3 Fair Plantarflexion (S1) 3 Fair Left Dorsiflexion (L4) 3 Fair Plantarflexion (S1) 3 Fair Comments tested in sitting PT-OP-Q Treatments Start: 10/10/23 07:27 Freq: Status: Active Protocol: Document 10/16/23 09:46 NM (Rec: 10/16/23 10:54 NM [id number]) Therapeutic Exercises Supine Exercises bridge Side bilateral Resistance level 1 band at thighs for abduction Equipment Used PT positioning pt for correct form; cueing for breathwork ( exhale w/ lift) Reps/Minutes 2x10 with small hold at end range Comments cued for glute squeeze; ht increased w/ breath cues quad set Side right Resistance AROM Equipment Used pillow under knee; PT facilitating activation w/ tapping Reps/Minutes 2x10 w/ 3 hold Comments trialed 1/2 foam roller but unable; small activation, no heel lift Sitting Exercises heel slide Side right Resistance AROM> AAROM Equipment Used slider under foot Reps/Minutes 2x10 with overpressure 5 into flexion from PT Comments discomfort at anterior knee; monitored for pain calf stretch Sitting Exercise Name 1. soleus, 2. gastrocnemius Side right Equipment Used gait belt Reps/Minutes 1x60 ea hamstring stretch Side right Equipment Used gait belt, foot elevated on trash can Reps/Minutes 2x60 Manual Therapy Treatment Consent Patient gave verbal consent for manual Yes treatment Soft Tissue Mobilization R knee Body Location peripatellar, HS, quad, calf, scar management, swelling management Mobilization Type Instrument Assisted,Rolling, Other Intensity/Depth Moderate Body Position Hooklying Comments Performing swell management distal > proximal from ankle to thigh. Performed scar mobilization with lifting, twisting, and gentle movement laterally to prevent adhesions ; trialed cupping w/ smallest diameter cup, emphasis on lower scar near tibia; limited due to knee flexion position Increased restrictions of quad and hamstring, minimal reduction with soft tissue mobilization. Tenderness over quad so more superficial soft tissue mobilization Self-Care/Home Management Treatment Education Patient Education Joint Protection,Pain Management,Posture Other Education 2 minutes- educated on use of compression sock for RLE if not contraindicated by MD in order to reduce swelling. Recommended elevation above heart level with compression. Further education during elevation or when sleeping to not place pillow directly under knee to prevent knee flexion contracture PT-OP-T Assessment and Plan Start: 10/10/23 07:27 Freq: Status: Active Protocol: Document 10/16/23 09:46 NM (Rec: 10/16/23 10:54 NM [id number]) Physical Therapy Assessment Goals Five Impairment R hip and knee strength 3+/5 globally Short Term Goal (STG) Pt will improve R global hip and knee strength to at least 4-/5 MMT in order to demonstrate increased strength for gait, transfers, and standing endurance STG Duration 6 weeks Assisted Goal (LTG) Pt will improve R global hip and knee strength to at least 4/5 MMT in order to demonstrate increased strength for gait, transfers, and standing endurance LTG Duration 12 weeks Four Impairment transfers Short Term Goal (STG) Pt will be able to perform STS transfer using LRAD or 1 hand assist on 1st attempt in order to demonstrate improved BLE strength and initial standing balance STG Duration 8 weeks Assisted Goal (LTG) If appropriate, pt will be able to transfer from floor using at least 1 hand assist and with min A or less in order to demonstrate improved BLE strength in case of fall LTG Duration 12 weeks Three Impairment gait 93 ft 2 MWT Short Term Goal (STG) Pt will improve ambulation distance >100 ft with LRAD in order to demonstrate improved tolerance for short community and household ambulation STG Duration 6 weeks Visual Coordinator Goal (LTG) Pt will improve ambulation distance >150 ft with LRAD in order to demonstrate improved tolerance for short community and household ambulation LTG Duration 12 weeks Two Impairment R knee ext AROM limited to 18 deg Short Term Goal (STG) Pt will improve R knee extension AROM to 10 deg or less in order to demonstrate improved extension for stance, gait, and transfers STG Duration 6 weeks Assisted Goal (LTG) Pt will improve R knee extension AROM to 5 deg or less in order to demonstrate improved extension for stance, gait, and transfers LTG Duration 12 weeks One Impairment R knee flexion AROM limited to 80 deg Short Term Goal (STG) Pt will improve R knee flexion AROM to at least 90 deg in order to demonstrate improved mobility for gait, stairs, and transfers STG Duration 6 weeks Assisted Goal (LTG) Pt will improve R knee flexion AROM to at least 100 deg in order to demonstrate improved mobility for gait, stairs, and transfers LTG Duration 12 weeks Assessment Summary Assessment Pt tolerated session well without any increase in R knee pain during session. Pt continues to lack more than 90 deg of R knee flexion AROM, still lacking extension AROM ( not measured due to time). Initiated both knee flexion and extension activities to promote better muscle activation and ROM. PT provided overpressure into knee flexion in seated, able to achieve 100 deg. PT also facilitated quad activation with quad set, cueing to limit glute compensation. Pt's hamstrings continue to be maximally restricted and limited overall range of motion. Mild reduction in stiffness with manual treatment and stretching, overall limiting ROM and gait. Pt demonstrates good effort with exercises, especially bridge and requires cues for breath work to improve muscle activation. Pt would benefit from skilled PT for progressive ROM and strengthening of RLE to improve gait, balance, and activity tolerance. Physical Therapy Plan Frequency and Duration Frequency of Treatment 1-2/wk Duration of treatment (weeks) 12 Plan of Care Start Date 10/10/23 Plan of Care End Date 01/09/24 Therapeutic Interventions Therapeutic Interventions Balance Training,Coordination Training,Gait Training,Home Exercise Program,Joint Mobilizations,Manual Therapy, Neuromuscular Re-education, Orthotic/Prosthetic Management ,Patient/Caregiver Education, Self-Care/Home Management, Sensory Integration,Soft Tissue Mobilization,Taping, Therapeutic Activities, Therapeutic Exercises Modalities Cold Pack/Ice Massage,Hot Packs Other Therapeutic Interventions spasticity management techniques Next Visit Focus/Plan Next Note Type Treatment Note Next Visit Plan Review bridge. add SAQ, seated hip abduction, standing TKE, QS. Joint mobilizations, swelling management heel slides, TKE, SAQ and LAQ, hip abduction, contract-relax hip abduction/adduction STS
--- NOTE | 2023-10-20 12:48 | PT.OTN ---
Current Diagnoses Stiffness of right knee, not elsewhere classified (10/20/23) Other lack of coordination (10/20/23) Weakness (10/20/23) Presence of right artificial knee joint (10/20/23) Physical Therapy Treatment Note PT-OP-A Visit Information Start: 10/10/23 07:27 Freq: Status: Active Protocol: Document 10/20/23 09:50 NM (Rec: 10/20/23 10:35 NM [id number]) Out-Patient Physical Therapy Visit Information Visit Information Visit Type Treatment Note Visit Note caregiver Ines Visit Start Time 09:51 Visit Stop Time 10:30 Visit Number 3 Evaluation Information Evaluation Date 10/10/23 Precautions Precautions Cerebral palsy, fall risk, limited L UE use, postural changes lead to dizziness PT-OP-B Current Condition Start: 10/10/23 07:27 Freq: Status: Active Protocol: Document 10/10/23 09:46 NM (Rec: 10/10/23 10:33 NM [id number]) Current Condition History of Current Condition Onset Date DOS 08/05/23 Current Complaints pain, mobility, strength History of Current Condition Pt presents s/p R TKA on . He was in a SNF following his surgery for 1 month. Presents with live-in helper, Ines. Pt was using FWW post -operatively but recently began using spc in R hand. 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 States walker aggravates L arm. Pt reports getting stronger overall since discharge from SNF. He had PT at [facility], [facility]. States ambulated 400 ft yesterday with spc, R knee aches him. Pt has not fallen in 1.5 years. Prior to surgery, pt was using FWW and spc. Pt also had spacer placed in his RLE due to shorter length (esta. during surgery), which has caused some cramping. Has had previous PT for knee (last fall) and for his L arm. He does some workouts at home, including sit and be fit, LAQ, marches. 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 No longer on baclofen due side effects. Pt does have stairs in his home, states can do without any struggle. Treatment Goals Patient/Caregiver Goals get up from floor, improve walking, strength PT-OP-C Subjective Start: 10/10/23 07:27 Freq: Status: Active Protocol: Document 10/20/23 09:50 NM (Rec: 10/20/23 10:35 NM [id number]) OP-PT Subjective Patient Comments Patient Comments Pt reports /10 R knee pain. States that he is performing HEP. Presents with 4WW today. Reports getting stronger PT-OP-E Functional Tests Start: 10/10/23 07:27 Freq: Status: Active Protocol: Document 10/10/23 09:46 NM (Rec: 10/10/23 16:52 NM [id number]) Functional Tests 2 Minute Walk Test Distance 93 ft Device Used spc Comments CGA; fatiguing; mild knee pain ; strong hip ADD/valgus/ pronation PT-OP-F Manual Assessment Start: 10/10/23 07:27 Freq: Status: Active Protocol: Document 10/10/23 09:46 NM (Rec: 10/10/23 10:33 NM [id number]) Manual Assessments Soft Tissue Assessment Soft Tissue Mobility Assessment Increased tone and decreased tissue length of hamstrings B, L adductors; increased ankle DF B Joint Mobility Assessment Joint Mobility Assessment Decreased PROM and AROM of R knee, hip. Decreased AROM and increased stability due to spasticity of LLE PT-OP-G Mobility & Gait Start: 10/10/23 07:27 Freq: Status: Active Protocol: Document 10/10/23 09:46 NM (Rec: 10/10/23 16:54 NM [id number]) OP Mobility Evaluation Bed Mobility Supine to and from Sit min A Transfers Sit to Stand with min A from low chair, several attempts CGA to steady with initial balance and hand assist to spc , several attempts to rise OP Gait Assessment Gait Gait Assistance Required: Contact Guard Assist Distance (Feet) 93 Assistive Devices Assistive Device Gait Belt,Straight Cane Gait Deviations General Gait Pattern Antalgic,Decreased Stride Length,Decreased Feet Clearance,Flexed Trunk,Narrow Based Gait Factors Limiting Gait Function Factors Limiting Gait Function Abnormal Tonal Influences, Decreased Activity Tolerance, Decreased Strength,Limited Range of Motion,Pain,Poor Balance Comments Gait Comments Demos strong B hip adduction into valgus with pronation, B flexed knees and increased ankle dorsiflexion. spc in R hand with moderate dependence for stability and to assist with LLE. Decreased foot clearance PT-OP-H Neuro Start: 10/10/23 07:27 Freq: Status: Active Protocol: Document 10/10/23 09:46 NM (Rec: 10/10/23 10:33 NM [id number]) Muscle Tone Tone Assessment Left Lower Extremity Flexor Tone Description Moderate Hypertonicity Muscle Tone Comments Modified paloma scale: 3 L knee PT-OP-J Posture/Palpation/Skin Start: 10/10/23 07:27 Freq: Status: Active Protocol: Document 10/10/23 09:46 NM (Rec: 10/10/23 16:30 NM [id number]) Posture Evaluation Position Standing Head/C-Spine Posture Forward Head T-Spine Posture Increased Kyphosis Arm Posture (L) Internally Rotated Pelvis Posture Anteriorly Tilted Weight Distribution Weight Shifted Right Hip Posture (L) Internally Rotated,(L) Adducted,(R) Adducted Knee Posture (L) Genu Valgus,(R) Genu Valgus,(L) Excess Flexion,(R) Excess Flexion Patellar Posture (L) Superior,(R) Superior Ankle/Foot Posture (L) Dorsiflexed,(R) Dorsiflexed,(L) Pronated Palpation Assessment Location R knee Palpation Details No tenderness along incision or joint line, patella Increased edema along entire lower RLE to knee Skin Assessment Incisional Assessment Incision Appearance/Comments Incision intact and healing well without scabbing, no signs or symptoms of infection PT-OP-K Range of Motion Start: 10/10/23 07:27 Freq: Status: Active Protocol: Document 10/10/23 09:46 NM (Rec: 10/10/23 10:33 NM [id number]) Knee Goniometric Range of Motion Knee Right Flexion Active (degrees) 80 Extension Active (degrees) 18 Left Flexion Active (degrees) 90 Extension Active (degrees) 9 Ankle and Foot Goniometric Range of Motion Ankle and Foot Right Comments Ankle DF to neutral Left Comments Ankle DF to neutral PT-OP-M Strength Start: 10/10/23 07:27 Freq: Status: Active Protocol: Document 10/10/23 09:46 NM (Rec: 10/10/23 10:33 NM [id number]) Hip Strength Hip Manual Muscle Testing Right Flexion (L2) 3+ Fair+ Extension (S1) 3+ Fair+ Abduction 3+ Fair+ Adduction 4 Good Left Flexion (L2) 3+ Fair+ Extension (S1) 3+ Fair+ Abduction 3+ Fair+ Adduction 3+ Fair+ Comments strength influenced by tone Knee Strength Knee Manual Muscle Testing Right Flexion (S2) 3+ Fair+ Extension (L3) 3+ Fair+ Comments No pain with resisted motion Left Flexion (S2) 3+ Fair+ Extension (L3) 3+ Fair+ Ankle/Foot Strength Ankle and Foot Manual Muscle Testing Right Dorsiflexion (L4) 3 Fair Plantarflexion (S1) 3 Fair Left Dorsiflexion (L4) 3 Fair Plantarflexion (S1) 3 Fair Comments tested in sitting PT-OP-Q Treatments Start: 10/10/23 07:27 Freq: Status: Active Protocol: Document 10/20/23 09:50 NM (Rec: 10/20/23 10:35 NM [id number]) Therapeutic Exercises Supine Exercises SAQ Side right Resistance AROM> AAROM end range Equipment Used pillow under knee Reps/Minutes 2x5 w/ end range assist Comments improved ext w/ reps quad set Supine Exercise Name HEP Side right Resistance AROM Equipment Used pillow under knee; PT facilitating activation w/ tapping Reps/Minutes 2x10 w/ 3 hold Comments trialed 1/2 foam roller but unable; small activation, no heel lift Sitting Exercises hip abduction Sitting Exercise Name with contract-relax using PT hand (HEP) Side bilateral Resistance level 1 band at thighs Equipment Used slider under foot Reps/Minutes 2x10 Comments very challening for pt; pain free HSC Sitting Exercise Name HEP Side right Resistance level 1 band at ankle, PT providing resistance Equipment Used slider under foot Reps/Minutes 2x10 Comments medium difficulty; cued breathwork heel slide Side right Resistance AROM Equipment Used slider under foot Reps/Minutes 10 with overpressure 5 into flexion from PT Comments discomfort at anterior knee; monitored for pain Manual Therapy Treatment Consent Patient gave verbal consent for manual Yes treatment Soft Tissue Mobilization R knee Body Location peripatellar, HS, quad, calf, adductor, scar management, swelling mgmt Mobilization Type Instrument Assisted,Rolling, Other Intensity/Depth Moderate Body Position Hooklying Comments Performing swell management distal > proximal from ankle to thigh. Performed scar mobilization with lifting, twisting, and gentle movement laterally to prevent adhesions ; trialed cupping w/ smallest diameter cup, emphasis on middle scar near patella; limited due to knee flexion position Increased restrictions of quad and hamstring, minimal reduction with soft tissue mobilization. Tenderness over quads and distal adductors so more superficial soft tissue mobilization Joint Mobilizations R knee Joint patellar Direction sup/inf, medial Grade III Body Position Hooklying Reps/Duration 10 ea Comments minimal movement. monitored for pain PT-OP-T Assessment and Plan Start: 10/10/23 07:27 Freq: Status: Active Protocol: Document 10/20/23 09:50 NM (Rec: 10/20/23 10:35 NM [id number]) Physical Therapy Assessment Goals Five Impairment R hip and knee strength 3+/5 globally Short Term Goal (STG) Pt will improve R global hip and knee strength to at least 4-/5 MMT in order to demonstrate increased strength for gait, transfers, and standing endurance STG Duration 6 weeks Senior Care Goal (LTG) Pt will improve R global hip and knee strength to at least 4/5 MMT in order to demonstrate increased strength for gait, transfers, and standing endurance LTG Duration 12 weeks Four Impairment transfers Short Term Goal (STG) Pt will be able to perform STS transfer using LRAD or 1 hand assist on 1st attempt in order to demonstrate improved BLE strength and initial standing balance STG Duration 8 weeks Senior Care Goal (LTG) If appropriate, pt will be able to transfer from floor using at least 1 hand assist and with min A or less in order to demonstrate improved BLE strength in case of fall LTG Duration 12 weeks Three Impairment gait 93 ft 2 MWT Short Term Goal (STG) Pt will improve ambulation distance >100 ft with LRAD in order to demonstrate improved tolerance for short community and household ambulation STG Duration 6 weeks Senior Care Goal (LTG) Pt will improve ambulation distance >150 ft with LRAD in order to demonstrate improved tolerance for short community and household ambulation LTG Duration 12 weeks Two Impairment R knee ext AROM limited to 18 deg Short Term Goal (STG) Pt will improve R knee extension AROM to 10 deg or less in order to demonstrate improved extension for stance, gait, and transfers STG Duration 6 weeks [employer]er Goal (LTG) Pt will improve R knee extension AROM to 5 deg or less in order to demonstrate improved extension for stance, gait, and transfers LTG Duration 12 weeks One Impairment R knee flexion AROM limited to 80 deg Short Term Goal (STG) Pt will improve R knee flexion AROM to at least 90 deg in order to demonstrate improved mobility for gait, stairs, and transfers STG Duration 6 weeks Senior Care Goal (LTG) Pt will improve R knee flexion AROM to at least 100 deg in order to demonstrate improved mobility for gait, stairs, and transfers LTG Duration 12 weeks Assessment Summary Assessment Pt tolerated session well. He has 95 deg knee flex AROM today; currently still 10 deg ext lacking and improved to lacking only 8 deg post manual and quad set. Continues to have difficulty with quad activation during quad set but improved with tapping for facilitation. Requires assistance for end range extension duringSAQ, but improved quad activation with reps. Progressed to hamstring curl in seated positioning following heel slides. Pt demonstrates improved stability during gait with 4WW than with spc, able to take larger steps with improved control; however, 4WW is more challenging on LUE. Pt continues to respond well to manual soft tissue mobilization due to restrictions of R hamstring and quad. Cupping of R scar tolerated well last session, continues to benefit from brief cupping to decreased adhesions and improve patellar mobility. Pt would benefit from skilled PT for RLE strengthening and ROM to improve functional mobility. Physical Therapy Plan Frequency and Duration Frequency of Treatment 1-2/wk Duration of treatment (weeks) 12 Plan of Care Start Date 10/10/23 Plan of Care End Date 01/09/24 Therapeutic Interventions Therapeutic Interventions Balance Training,Coordination Training,Gait Training,Home Exercise Program,Joint Mobilizations,Manual Therapy, Neuromuscular Re-education, Orthotic/Prosthetic Management ,Patient/Caregiver Education, Self-Care/Home Management, Sensory Integration,Soft Tissue Mobilization,Taping, Therapeutic Activities, Therapeutic Exercises Modalities Cold Pack/Ice Massage,Hot Packs Other Therapeutic Interventions spasticity management techniques Next Visit Focus/Plan Next Note Type Treatment Note Next Visit Plan Review bridge. add SAQ w/ QS, heel slide in supine vs sitting, STS with support to higher surface, Joint mobilizations as tolerated, swelling management TKE with band, SAQ and LAQ, hip abduction, contract-relax hip abduction/adduction STS Manual: STM to HS, quad, adductors requires Rashawn to transfer sup>sit
--- NOTE | 2023-10-22 16:54 | PT.OTN ---
Current Diagnoses Stiffness of right knee, not elsewhere classified (10/22/23) Other lack of coordination (10/22/23) Weakness (10/22/23) Presence of right artificial knee joint (10/22/23) Physical Therapy Treatment Note PT-OP-A Visit Information Start: 10/10/23 07:27 Freq: Status: Active Protocol: Document 10/22/23 13:43 TS (Rec: 10/22/23 16:53 TS [id number]) Out-Patient Physical Therapy Visit Information Visit Information Visit Type Treatment Note Visit Note caregiver Ines Basilio:[id number] Visit Start Time 13:45 Visit Stop Time 14:25 Visit Number 4 Number of PUBLIC HEALTH ANALYST Visits 1 Precautions Precautions Cerebral palsy, fall risk, limited L UE use, postural changes lead to dizziness PT-OP-B Current Condition Start: 10/10/23 07:27 Freq: Status: Active Protocol: Document 10/10/23 09:46 NM (Rec: 10/10/23 10:33 NM [id number]) Current Condition History of Current Condition Onset Date DOS 08/05/23 Current Complaints pain, mobility, strength History of Current Condition Pt presents s/p R TKA on . He was in a SNF following his surgery for 1 month. Presents with live-in helper, Ines. Pt was using FWW post -operatively but recently began using spc in R hand. 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 States walker aggravates L arm. Pt reports getting stronger overall since discharge from SNF. He had PT at SNF, [facility]. States ambulated 400 ft yesterday with spc, R knee aches him. Pt has not fallen in 1.5 years. Prior to surgery, pt was using FWW and spc. Pt also had spacer placed in his RLE due to shorter length (esta. during surgery), which has caused some cramping. Has had previous PT for knee (last fall) and for his L arm. He does some workouts at home, including sit and be fit, LAQ, marches. 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 No longer on baclofen due side effects. Pt does have stairs in his home, states can do without any struggle. Treatment Goals Patient/Caregiver Goals get up from floor, improve walking, strength PT-OP-C Subjective Start: 10/10/23 07:27 Freq: Status: Active Protocol: Document 10/22/23 13:43 TS (Rec: 10/22/23 16:53 TS [id number]) OP-PT Subjective Patient Comments Patient Comments Pt reports being able to get out of car easier today. He has been doing his HEP at home . PT-OP-E Functional Tests Start: 10/10/23 07:27 Freq: Status: Active Protocol: Document 10/10/23 09:46 NM (Rec: 10/10/23 16:52 NM [id number]) Functional Tests 2 Minute Walk Test Distance 93 ft Device Used spc Comments CGA; fatiguing; mild knee pain ; strong hip ADD/valgus/ pronation PT-OP-F Manual Assessment Start: 10/10/23 07:27 Freq: Status: Active Protocol: Document 10/10/23 09:46 NM (Rec: 10/10/23 10:33 NM [id number]) Manual Assessments Soft Tissue Assessment Soft Tissue Mobility Assessment Increased tone and decreased tissue length of hamstrings B, L adductors; increased ankle DF B Joint Mobility Assessment Joint Mobility Assessment Decreased PROM and AROM of R knee, hip. Decreased AROM and increased stability due to spasticity of LLE PT-OP-G Mobility & Gait Start: 10/10/23 07:27 Freq: Status: Active Protocol: Document 10/10/23 09:46 NM (Rec: 10/10/23 16:54 NM [id number]) OP Mobility Evaluation Bed Mobility Supine to and from Sit min A Transfers Sit to Stand with min A from low chair, several attempts CGA to steady with initial balance and hand assist to spc , several attempts to rise OP Gait Assessment Gait Gait Assistance Required: Contact Guard Assist Distance (Feet) 93 Assistive Devices Assistive Device Gait Belt,Straight Cane Gait Deviations General Gait Pattern Antalgic,Decreased Stride Length,Decreased Feet Clearance,Flexed Trunk,Narrow Based Gait Factors Limiting Gait Function Factors Limiting Gait Function Abnormal Tonal Influences, Decreased Activity Tolerance, Decreased Strength,Limited Range of Motion,Pain,Poor Balance Comments Gait Comments Demos strong B hip adduction into valgus with pronation, B flexed knees and increased ankle dorsiflexion. spc in R hand with moderate dependence for stability and to assist with LLE. Decreased foot clearance PT-OP-H Neuro Start: 10/10/23 07:27 Freq: Status: Active Protocol: Document 10/10/23 09:46 NM (Rec: 10/10/23 10:33 NM [id number]) Muscle Tone Tone Assessment Left Lower Extremity Flexor Tone Description Moderate Hypertonicity Muscle Tone Comments Modified paloma scale: 3 L knee PT-OP-J Posture/Palpation/Skin Start: 10/10/23 07:27 Freq: Status: Active Protocol: Document 10/10/23 09:46 NM (Rec: 10/10/23 16:30 NM [id number]) Posture Evaluation Position Standing Head/C-Spine Posture Forward Head T-Spine Posture Increased Kyphosis Arm Posture (L) Internally Rotated Pelvis Posture Anteriorly Tilted Weight Distribution Weight Shifted Right Hip Posture (L) Internally Rotated,(L) Adducted,(R) Adducted Knee Posture (L) Genu Valgus,(R) Genu Valgus,(L) Excess Flexion,(R) Excess Flexion Patellar Posture (L) Superior,(R) Superior Ankle/Foot Posture (L) Dorsiflexed,(R) Dorsiflexed,(L) Pronated Palpation Assessment Location R knee Palpation Details No tenderness along incision or joint line, patella Increased edema along entire lower RLE to knee Skin Assessment Incisional Assessment Incision Appearance/Comments Incision intact and healing well without scabbing, no signs or symptoms of infection PT-OP-K Range of Motion Start: 10/10/23 07:27 Freq: Status: Active Protocol: Document 10/10/23 09:46 NM (Rec: 10/10/23 10:33 NM [id number]) Knee Goniometric Range of Motion Knee Right Flexion Active (degrees) 80 Extension Active (degrees) 18 Left Flexion Active (degrees) 90 Extension Active (degrees) 9 Ankle and Foot Goniometric Range of Motion Ankle and Foot Right Comments Ankle DF to neutral Left Comments Ankle DF to neutral PT-OP-M Strength Start: 10/10/23 07:27 Freq: Status: Active Protocol: Document 10/10/23 09:46 NM (Rec: 10/10/23 10:33 NM [id number]) Hip Strength Hip Manual Muscle Testing Right Flexion (L2) 3+ Fair+ Extension (S1) 3+ Fair+ Abduction 3+ Fair+ Adduction 4 Good Left Flexion (L2) 3+ Fair+ Extension (S1) 3+ Fair+ Abduction 3+ Fair+ Adduction 3+ Fair+ Comments strength influenced by tone Knee Strength Knee Manual Muscle Testing Right Flexion (S2) 3+ Fair+ Extension (L3) 3+ Fair+ Comments No pain with resisted motion Left Flexion (S2) 3+ Fair+ Extension (L3) 3+ Fair+ Ankle/Foot Strength Ankle and Foot Manual Muscle Testing Right Dorsiflexion (L4) 3 Fair Plantarflexion (S1) 3 Fair Left Dorsiflexion (L4) 3 Fair Plantarflexion (S1) 3 Fair Comments tested in sitting PT-OP-Q Treatments Start: 10/10/23 07:27 Freq: Status: Active Protocol: Document 10/22/23 13:43 TS (Rec: 10/22/23 16:53 TS [id number]) Therapeutic Exercises Supine Exercises bridge Supine Exercise Name HEP Side bilateral Resistance level 1 band at thighs for abduction Equipment Used PT positioning pt for correct form; cueing for breathwork ( exhale w/ lift) Reps/Minutes 2x10 with small hold at end range Comments cued for glute squeeze, core and breathing Sitting Exercises LAQ Sitting Exercise Name HEP Reps/Minutes 2x10 Comments cues for upright posture, no leaning back hip abduction Side bilateral Resistance level 1 band at thighs Equipment Used slider under foot Reps/Minutes 2x10 Comments very challening for pt; pain free Standing Exercises STS Reps/Minutes 1x10 Comments cues for hip hinge, nose over toes Manual Therapy Treatment Soft Tissue Mobilization R knee Body Location peripatellar, HS, quad, calf, adductor, scar management, swelling mgmt Mobilization Type Instrument Assisted,Rolling, Other Intensity/Depth Moderate Body Position Hooklying Comments Performing swell management distal > proximal from ankle to thigh. Performed scar mobilization with lifting, twisting, and gentle movement laterally to prevent adhesions ; trialed cupping w/ smallest diameter cup, emphasis on middle scar near patella; limited due to knee flexion position Increased restrictions of quad and hamstring, minimal reduction with soft tissue mobilization. Tenderness over quads and distal adductors so more superficial soft tissue mobilization Joint Mobilizations R knee Joint patellar Direction sup/inf, medial Grade III Body Position Hooklying Reps/Duration 10 ea Comments minimal movement. monitored for pain. Demonstrated for caregiver for at home. PT-OP-T Assessment and Plan Start: 10/10/23 07:27 Freq: Status: Active Protocol: Document 10/22/23 13:43 TS (Rec: 10/22/23 16:53 TS [id number]) Physical Therapy Assessment Goals Five Impairment R hip and knee strength 3+/5 globally Short Term Goal (STG) Pt will improve R global hip and knee strength to at least 4-/5 MMT in order to demonstrate increased strength for gait, transfers, and standing endurance STG Duration 6 weeks Fdc Goal (LTG) Pt will improve R global hip and knee strength to at least 4/5 MMT in order to demonstrate increased strength for gait, transfers, and standing endurance LTG Duration 12 weeks Four Impairment transfers Short Term Goal (STG) Pt will be able to perform STS transfer using LRAD or 1 hand assist on 1st attempt in order to demonstrate improved BLE strength and initial standing balance STG Duration 8 weeks Terrazzo Helper Goal (LTG) If appropriate, pt will be able to transfer from floor using at least 1 hand assist and with min A or less in order to demonstrate improved BLE strength in case of fall LTG Duration 12 weeks Three Impairment gait 93 ft 2 MWT Short Term Goal (STG) Pt will improve ambulation distance >100 ft with LRAD in order to demonstrate improved tolerance for short community and household ambulation STG Duration 6 weeks Fdc Goal (LTG) Pt will improve ambulation distance >150 ft with LRAD in order to demonstrate improved tolerance for short community and household ambulation LTG Duration 12 weeks Two Impairment R knee ext AROM limited to 18 deg Short Term Goal (STG) Pt will improve R knee extension AROM to 10 deg or less in order to demonstrate improved extension for stance, gait, and transfers STG Duration 6 weeks Terrazzo Helper Goal (LTG) Pt will improve R knee extension AROM to 5 deg or less in order to demonstrate improved extension for stance, gait, and transfers LTG Duration 12 weeks One Impairment R knee flexion AROM limited to 80 deg Short Term Goal (STG) Pt will improve R knee flexion AROM to at least 90 deg in order to demonstrate improved mobility for gait, stairs, and transfers STG Duration 6 weeks Terrazzo Helper Goal (LTG) Pt will improve R knee flexion AROM to at least 100 deg in order to demonstrate improved mobility for gait, stairs, and transfers LTG Duration 12 weeks Assessment Summary Assessment Pt demonstrates good quad act with LAQ sitting EOB. He continues to have difficulty with hip ABD and bridge. Requires cues for core act and breathes with ther-ex. Caregiver was instructed in and performed manual therapy with pt. Added brdige and LAQ to HEP. Pt would benefit from skilled PT for RLE strengthening and ROM to improve functional mobility. Physical Therapy Plan Next Visit Focus/Plan Next Note Type Treatment Note Next Visit Plan Review bridge, LAQ, STS. add SAQ w/ QS, heel slide in supine vs sitting, STS with support to higher surface, Joint mobilizations as tolerated, swelling management TKE with band, SAQ and LAQ, hip abduction, contract-relax hip abduction/adduction STS Manual: STM to HS, quad, adductors requires Rashawn to transfer sup>sit
--- NOTE | 2023-10-29 16:28 | PT.OTN ---
Current Diagnoses Stiffness of right knee, not elsewhere classified (10/29/23) Other lack of coordination (10/29/23) Weakness (10/29/23) Presence of right artificial knee joint (10/29/23) Physical Therapy Treatment Note PT-OP-A Visit Information Start: 10/10/23 07:27 Freq: Status: Active Protocol: Document 10/29/23 14:25 TS (Rec: 10/29/23 16:28 TS [id number]) Out-Patient Physical Therapy Visit Information Visit Information Visit Type Treatment Note Visit Note caregiver Ines Basilio:[id number] Visit Start Time 14:30 Visit Stop Time 15:10 Visit Number 5 Number of TERRITORY SALES CONSULTANT Visits 2 PT-OP-B Current Condition Start: 10/10/23 07:27 Freq: Status: Active Protocol: Document 10/10/23 09:46 NM (Rec: 10/10/23 10:33 NM [id number]) Current Condition History of Current Condition Onset Date DOS 08/05/23 Current Complaints pain, mobility, strength History of Current Condition Pt presents s/p R TKA on . He was in a SNF following his surgery for 1 month. Presents with live-in helper, Ines. Pt was using FWW post -operatively but recently began using spc in R hand. 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 States walker aggravates L arm. Pt reports getting stronger overall since discharge from SNF. He had PT at SNF, [facility]. States ambulated 400 ft yesterday with spc, R knee aches him. Pt has not fallen in 1.5 years. Prior to surgery, pt was using FWW and spc. Pt also had spacer placed in his RLE due to shorter length (esta. during surgery), which has caused some cramping. Has had previous PT for knee (last fall) and for his L arm. He does some workouts at home, including sit and be fit, yanira [place]. 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 No longer on baclofen due side effects. Pt does have stairs in his home, states can do without any struggle. Treatment Goals Patient/Caregiver Goals get up from floor, improve walking, strength PT-OP-C Subjective Start: 10/10/23 07:27 Freq: Status: Active Protocol: Document 10/29/23 14:25 TS (Rec: 10/29/23 16:28 TS [id number]) OP-PT Subjective Patient Comments Patient Comments Pt reports doing HEP in the morning. He is walking unassisted with cane for the first time this afternoon. He has some aches in his knee. PT-OP-E Functional Tests Start: 10/10/23 07:27 Freq: Status: Active Protocol: Document 10/10/23 09:46 NM (Rec: 10/10/23 16:52 NM [id number]) Functional Tests 2 Minute Walk Test Distance 93 ft Device Used spc Comments CGA; fatiguing; mild knee pain ; strong hip ADD/valgus/ pronation PT-OP-F Manual Assessment Start: 10/10/23 07:27 Freq: Status: Active Protocol: Document 10/10/23 09:46 NM (Rec: 10/10/23 10:33 NM [id number]) Manual Assessments Soft Tissue Assessment Soft Tissue Mobility Assessment Increased tone and decreased tissue length of hamstrings B, L adductors; increased ankle DF B Joint Mobility Assessment Joint Mobility Assessment Decreased PROM and AROM of R knee, hip. Decreased AROM and increased stability due to spasticity of LLE PT-OP-G Mobility & Gait Start: 10/10/23 07:27 Freq: Status: Active Protocol: Document 10/10/23 09:46 NM (Rec: 10/10/23 16:54 NM [id number]) OP Mobility Evaluation Bed Mobility Supine to and from Sit min A Transfers Sit to Stand with min A from low chair, several attempts CGA to steady with initial balance and hand assist to spc , several attempts to rise OP Gait Assessment Gait Gait Assistance Required: Contact Guard Assist Distance (Feet) 93 Assistive Devices Assistive Device Gait Belt,Straight Cane Gait Deviations General Gait Pattern Antalgic,Decreased Stride Length,Decreased Feet Clearance,Flexed Trunk,Narrow Based Gait Factors Limiting Gait Function Factors Limiting Gait Function Abnormal Tonal Influences, Decreased Activity Tolerance, Decreased Strength,Limited Range of Motion,Pain,Poor Balance Comments Gait Comments Demos strong B hip adduction into valgus with pronation, B flexed knees and increased ankle dorsiflexion. spc in R hand with moderate dependence for stability and to assist with LLE. Decreased foot clearance PT-OP-H Neuro Start: 10/10/23 07:27 Freq: Status: Active Protocol: Document 10/10/23 09:46 NM (Rec: 10/10/23 10:33 NM [id number]) Muscle Tone Tone Assessment Left Lower Extremity Flexor Tone Description Moderate Hypertonicity Muscle Tone Comments Modified paloma scale: 3 L knee PT-OP-J Posture/Palpation/Skin Start: 10/10/23 07:27 Freq: Status: Active Protocol: Document 10/10/23 09:46 NM (Rec: 10/10/23 16:30 NM [id number]) Posture Evaluation Position Standing Head/C-Spine Posture Forward Head T-Spine Posture Increased Kyphosis Arm Posture (L) Internally Rotated Pelvis Posture Anteriorly Tilted Weight Distribution Weight Shifted Right Hip Posture (L) Internally Rotated,(L) Adducted,(R) Adducted Knee Posture (L) Genu Valgus,(R) Genu Valgus,(L) Excess Flexion,(R) Excess Flexion Patellar Posture (L) Superior,(R) Superior Ankle/Foot Posture (L) Dorsiflexed,(R) Dorsiflexed,(L) Pronated Palpation Assessment Location R knee Palpation Details No tenderness along incision or joint line, patella Increased edema along entire lower RLE to knee Skin Assessment Incisional Assessment Incision Appearance/Comments Incision intact and healing well without scabbing, no signs or symptoms of infection PT-OP-K Range of Motion Start: 10/10/23 07:27 Freq: Status: Active Protocol: Document 10/10/23 09:46 NM (Rec: 10/10/23 10:33 NM [id number]) Knee Goniometric Range of Motion Knee Right Flexion Active (degrees) 80 Extension Active (degrees) 18 Left Flexion Active (degrees) 90 Extension Active (degrees) 9 Ankle and Foot Goniometric Range of Motion Ankle and Foot Right Comments Ankle DF to neutral Left Comments Ankle DF to neutral PT-OP-M Strength Start: 10/10/23 07:27 Freq: Status: Active Protocol: Document 10/10/23 09:46 NM (Rec: 10/10/23 10:33 NM [id number]) Hip Strength Hip Manual Muscle Testing Right Flexion (L2) 3+ Fair+ Extension (S1) 3+ Fair+ Abduction 3+ Fair+ Adduction 4 Good Left Flexion (L2) 3+ Fair+ Extension (S1) 3+ Fair+ Abduction 3+ Fair+ Adduction 3+ Fair+ Comments strength influenced by tone Knee Strength Knee Manual Muscle Testing Right Flexion (S2) 3+ Fair+ Extension (L3) 3+ Fair+ Comments No pain with resisted motion Left Flexion (S2) 3+ Fair+ Extension (L3) 3+ Fair+ Ankle/Foot Strength Ankle and Foot Manual Muscle Testing Right Dorsiflexion (L4) 3 Fair Plantarflexion (S1) 3 Fair Left Dorsiflexion (L4) 3 Fair Plantarflexion (S1) 3 Fair Comments tested in sitting PT-OP-Q Treatments Start: 10/10/23 07:27 Freq: Status: Active Protocol: Document 10/29/23 14:25 TS (Rec: 10/29/23 16:28 TS [id number]) Therapeutic Exercises Supine Exercises Heel slide Side right Reps/Minutes 1x10 bridge Supine Exercise Name HEP Side bilateral Resistance level 1 band at thighs for abduction Reps/Minutes 1x10 with small hold at end range Comments cued for glute squeeze, core and breathing Sitting Exercises LAQ Sitting Exercise Name HEP Reps/Minutes 2x10 Comments cues for upright posture, no leaning back hip abduction Side bilateral Resistance level 1 band at thighs Reps/Minutes 1x10 Comments very challenging for pt Standing Exercises TKE Resistance LVL 1 Equipment Used therapist holding band Reps/Minutes 1x10 Comments Cues for upright posture and quad act. STS Reps/Minutes 1x5 Comments cues for hip hinge, nose over toes Manual Therapy Treatment Soft Tissue Mobilization R knee Body Location peripatellar, HS, scar management, swelling mgmt Mobilization Type Instrument Assisted,Rolling, Other Intensity/Depth Moderate Body Position Hooklying Comments Performing swell management distal > proximal from ankle to thigh. Performed scar mobilization with twisting, and gentle movement laterally to prevent adhesions; Hamstrings Joint Mobilizations R knee Joint patellar, AP/PA Direction sup/inf, medial Grade III Body Position Hooklying Reps/Duration 10 ea Comments minimal movement. monitored for pain. Demonstrated for caregiver for at home. Pt has pitting edema with AP's. PT-OP-T Assessment and Plan Start: 10/10/23 07:27 Freq: Status: Active Protocol: Document 10/29/23 14:25 TS (Rec: 10/29/23 16:28 TS [id number]) Physical Therapy Assessment Goals Five Impairment R hip and knee strength 3+/5 globally Short Term Goal (STG) Pt will improve R global hip and knee strength to at least 4-/5 MMT in order to demonstrate increased strength for gait, transfers, and standing endurance STG Duration 6 weeks Rotary Shear Operator Goal (LTG) Pt will improve R global hip and knee strength to at least 4/5 MMT in order to demonstrate increased strength for gait, transfers, and standing endurance LTG Duration 12 weeks Four Impairment transfers Short Term Goal (STG) Pt will be able to perform STS transfer using LRAD or 1 hand assist on 1st attempt in order to demonstrate improved BLE strength and initial standing balance STG Duration 8 weeks Group Home Goal (LTG) If appropriate, pt will be able to transfer from floor using at least 1 hand assist and with min A or less in order to demonstrate improved BLE strength in case of fall LTG Duration 12 weeks Three Impairment gait 93 ft 2 MWT Short Term Goal (STG) Pt will improve ambulation distance >100 ft with LRAD in order to demonstrate improved tolerance for short community and household ambulation STG Duration 6 weeks Rotary Shear Operator Goal (LTG) Pt will improve ambulation distance >150 ft with LRAD in order to demonstrate improved tolerance for short community and household ambulation LTG Duration 12 weeks Two Impairment R knee ext AROM limited to 18 deg Short Term Goal (STG) Pt will improve R knee extension AROM to 10 deg or less in order to demonstrate improved extension for stance, gait, and transfers STG Duration 6 weeks Rotary Shear Operator Goal (LTG) Pt will improve R knee extension AROM to 5 deg or less in order to demonstrate improved extension for stance, gait, and transfers LTG Duration 12 weeks One Impairment R knee flexion AROM limited to 80 deg Short Term Goal (STG) Pt will improve R knee flexion AROM to at least 90 deg in order to demonstrate improved mobility for gait, stairs, and transfers STG Duration 6 weeks Rotary Shear Operator Goal (LTG) Pt will improve R knee flexion AROM to at least 100 deg in order to demonstrate improved mobility for gait, stairs, and transfers LTG Duration 12 weeks Assessment Summary Assessment Pt continues to have swelling with pitting edema in RLE, could be chronic from before surgery. He continues to be challeneged with bridges and LAQ. He demonstrates some carryover of breathing techniques this session. He is ambulating with cane and with no assist from caregiver this session for the first time since surgery. Continues to require cues for proper STS technique. Physical Therapy Plan Next Visit Focus/Plan Next Note Type Treatment Note Next Visit Plan Assess standing TKE with band and STS technique. Continue manual therapy for scar especially for proximal portion, distal hamstring, swelling management. Progress ther-ex as needed.
--- NOTE | 2023-11-05 14:08 | PT.OTN ---
Current Diagnoses Stiffness of right knee, not elsewhere classified (11/05/23) Other lack of coordination (11/05/23) Weakness (11/05/23) Presence of right artificial knee joint (11/05/23) Physical Therapy Treatment Note PT-OP-A Visit Information Start: 10/10/23 07:27 Freq: Status: Active Protocol: Document 11/05/23 09:47 NM (Rec: 11/05/23 10:28 NM [id number]) Out-Patient Physical Therapy Visit Information Visit Information Visit Type Progress Note Visit Note caregiver Ines Gooden Visit Start Time 09:48 Visit Stop Time 10:28 Visit Number 6 Number of FIELD SERVICE ENGINEER Visits 0 Evaluation Information Evaluation Date 10/10/23 Precautions Precautions Cerebral palsy, fall risk, limited L UE use, postural changes lead to dizziness PT-OP-B Current Condition Start: 10/10/23 07:27 Freq: Status: Active Protocol: Document 10/10/23 09:46 NM (Rec: 10/10/23 10:33 NM [id number]) Current Condition History of Current Condition Onset Date DOS 08/05/23 Current Complaints pain, mobility, strength History of Current Condition Pt presents s/p R TKA on . He was in a SNF following his surgery for 1 month. Presents with live-in helper, Ines. Pt was using FWW post -operatively but recently began using spc in R hand. 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 States walker aggravates L arm. Pt reports getting stronger overall since discharge from SNF. He had PT at SNF, PT. States ambulated 400 ft yesterday with spc, R knee aches him. Pt has not fallen in 1.5 years. Prior to surgery, pt was using FWW and spc. Pt also had spacer placed in his RLE due to shorter length (esta. during surgery), which has caused some cramping. Has had previous PT for knee (last fall) and for his L arm. He does some workouts at home, including sit and be fit, LAQ, marchstarla. 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 No longer on baclofen due side effects. Pt does have stairs in his home, states can do without any struggle. Treatment Goals Patient/Caregiver Goals get up from floor, improve walking, strength PT-OP-C Subjective Start: 10/10/23 07:27 Freq: Status: Active Protocol: Document 11/05/23 09:47 NM (Rec: 11/05/23 10:28 NM [id number]) OP-PT Subjective Patient Comments Patient Comments Pt reports that he is doing well, states that he is walking better. Was able to do his stationary bike today fr 5 minutes without knee pain; plans on doing it every day. He is also making a conscious effort to walk with his legs wider apart and his R knee straighter. He as a neuro appt one week from Friday, will be getting botox. Pt also reports that he is trying to walk without his cane at home. He also got an ingrown toenail on his L foot, but it got removed so walking better. PT-OP-E Functional Tests Start: 10/10/23 07:27 Freq: Status: Active Protocol: Document 10/10/23 09:46 NM (Rec: 10/10/23 16:52 NM [id number]) Functional Tests 2 Minute Walk Test Distance 93 ft Device Used spc Comments CGA; fatiguing; mild knee pain ; strong hip ADD/valgus/ pronation PT-OP-F Manual Assessment Start: 10/10/23 07:27 Freq: Status: Active Protocol: Document 10/10/23 09:46 NM (Rec: 10/10/23 10:33 NM [id number]) Manual Assessments Soft Tissue Assessment Soft Tissue Mobility Assessment Increased tone and decreased tissue length of hamstrings B, L adductors; increased ankle DF B Joint Mobility Assessment Joint Mobility Assessment Decreased PROM and AROM of R knee, hip. Decreased AROM and increased stability due to spasticity of LLE PT-OP-G Mobility & Gait Start: 10/10/23 07:27 Freq: Status: Active Protocol: Document 10/10/23 09:46 NM (Rec: 10/10/23 16:54 NM [id number]) OP Mobility Evaluation Bed Mobility Supine to and from Sit min A Transfers Sit to Stand with min A from low chair, several attempts CGA to steady with initial balance and hand assist to spc , several attempts to rise OP Gait Assessment Gait Gait Assistance Required: Contact Guard Assist Distance (Feet) 93 Assistive Devices Assistive Device Gait Belt,Straight Cane Gait Deviations General Gait Pattern Antalgic,Decreased Stride Length,Decreased Feet Clearance,Flexed Trunk,Narrow Based Gait Factors Limiting Gait Function Factors Limiting Gait Function Abnormal Tonal Influences, Decreased Activity Tolerance, Decreased Strength,Limited Range of Motion,Pain,Poor Balance Comments Gait Comments Demos strong B hip adduction into valgus with pronation, B flexed knees and increased ankle dorsiflexion. spc in R hand with moderate dependence for stability and to assist with LLE. Decreased foot clearance PT-OP-H Neuro Start: 10/10/23 07:27 Freq: Status: Active Protocol: Document 10/10/23 09:46 NM (Rec: 10/10/23 10:33 NM [id number]) Muscle Tone Tone Assessment Left Lower Extremity Flexor Tone Description Moderate Hypertonicity Muscle Tone Comments Modified paloma scale: 3 L knee PT-OP-J Posture/Palpation/Skin Start: 10/10/23 07:27 Freq: Status: Active Protocol: Document 10/10/23 09:46 NM (Rec: 10/10/23 16:30 NM [id number]) Posture Evaluation Position Standing Head/C-Spine Posture Forward Head T-Spine Posture Increased Kyphosis Arm Posture (L) Internally Rotated Pelvis Posture Anteriorly Tilted Weight Distribution Weight Shifted Right Hip Posture (L) Internally Rotated,(L) Adducted,(R) Adducted Knee Posture (L) Genu Valgus,(R) Genu Valgus,(L) Excess Flexion,(R) Excess Flexion Patellar Posture (L) Superior,(R) Superior Ankle/Foot Posture (L) Dorsiflexed,(R) Dorsiflexed,(L) Pronated Palpation Assessment Location R knee Palpation Details No tenderness along incision or joint line, patella Increased edema along entire lower RLE to knee Skin Assessment Incisional Assessment Incision Appearance/Comments Incision intact and healing well without scabbing, no signs or symptoms of infection PT-OP-K Range of Motion Start: 10/10/23 07:27 Freq: Status: Active Protocol: Document 11/05/23 09:47 NM (Rec: 11/05/23 10:28 NM [id number]) Knee Goniometric Range of Motion Knee Right Flexion Active (degrees) 90 Extension Active (degrees) 10 Comments Ie: 80 deg flex, lacking 18 deg ext 11/05/23: 90 deg flex, lacking 10 deg extension Left Flexion Active (degrees) 90 Extension Active (degrees) 9 PT-OP-M Strength Start: 10/10/23 07:27 Freq: Status: Active Protocol: Document 11/05/23 09:47 NM (Rec: 11/05/23 10:28 NM [id number]) Hip Strength Hip Manual Muscle Testing Right Flexion (L2) 4- Good- Extension (S1) 4- Good- Abduction 3+ Fair+ Adduction 4 Good Knee Strength Knee Manual Muscle Testing Right Flexion (S2) 4- Good- Extension (L3) 4- Good- Comments IE: 3+/5; No pain with resisted motion 11/05/23: 4-/5, pain free Left Flexion (S2) 3+ Fair+ Extension (L3) 3+ Fair+ PT-OP-Q Treatments Start: 10/10/23 07:27 Freq: Status: Active Protocol: Document 11/05/23 09:47 NM (Rec: 11/05/23 10:28 NM [id number]) Therapeutic Exercises Sitting Exercises LAQ Side right Resistance level 1 band Reps/Minutes 10 w.o band, 10 w/ band Comments cues for upright posture, no leaning back Standing Exercises TKE Resistance LVL 1 Equipment Used therapist holding band Reps/Minutes 1x10 Comments Cues for upright posture and quad act. STS Standing Exercise Name 1. 2 hand assist, 2. w/ B hand fwd from elevated plinth Resistance level 1 band at thighs to limit valgus Reps/Minutes 1. 5, 2. 5 Comments closeSBA w/ prn CGA; cued TKE, ant WS Manual Therapy Treatment Consent Patient gave verbal consent for manual Yes treatment Soft Tissue Mobilization R knee Body Location peripatellar, HS, hip flexors, quads, scar management, swelling mgmt Mobilization Type Instrument Assisted,Rolling, Other Intensity/Depth Moderate Body Position Hooklying Comments Performing swell management distal > proximal from ankle to thigh. Performed scar mobilization with twisting, and gentle movement laterally to prevent adhesions. Emphasis on hamstrings, quads, hip flexors, and peripatellar area Joint Mobilizations R knee Joint patellar, tibiofemoral AP/PA Direction sup/inf, medial Grade III Body Position Hooklying Reps/Duration 4x30 ea Comments Limited patellar movement. Lacking 12 deg ext at start of manual tx, reduced to lacking 10 deg at end of session PT-OP-T Assessment and Plan Start: 10/10/23 07:27 Freq: Status: Active Protocol: Document 11/05/23 09:47 NM (Rec: 11/05/23 10:28 NM [id number]) Physical Therapy Assessment Goals Five Impairment R hip and knee strength 3+/5 globally Short Term Goal (STG) Pt will improve R global hip and knee strength to at least 4-/5 MMT in order to demonstrate increased strength for gait, transfers, and standing endurance 11/05/23: hip abd 3+/5, all other hip/knee 4-/5 STG Duration 6 weeks PROGRESSING Locomotive Inspector Goal (LTG) Pt will improve R global hip and knee strength to at least 4/5 MMT in order to demonstrate increased strength for gait, transfers, and standing endurance LTG Duration 12 weeks Four Impairment transfers Short Term Goal (STG) Pt will be able to perform STS transfer using LRAD or 1 hand assist on 1st attempt in order to demonstrate improved BLE strength and initial standing balance 11/16/23: pt able to do STS with B hand assist from standard chair, no UE assist from elevated plinth in 1st attempt for several reps STG Duration 8 weeks [facility] Goal (LTG) If appropriate, pt will be able to transfer from floor using at least 1 hand assist and with min A or less in order to demonstrate improved BLE strength in case of fall LTG Duration 12 weeks Three Impairment gait 93 ft 2 MWT Short Term Goal (STG) Pt will improve ambulation distance >100 ft with LRAD in order to demonstrate improved tolerance for short community and household ambulation STG Duration 6 weeks Senior Living Goal (LTG) Pt will improve ambulation distance >150 ft with LRAD in order to demonstrate improved tolerance for short community and household ambulation LTG Duration 12 weeks Two Impairment R knee ext AROM limited to 18 deg Short Term Goal (STG) Pt will improve R knee extension AROM to 10 deg or less in order to demonstrate improved extension for stance, gait, and transfers 11/05/23: lacking 10 deg STG Duration 6 weeks [facility] Goal (LTG) Pt will improve R knee extension AROM to 5 deg or less in order to demonstrate improved extension for stance, gait, and transfers LTG Duration 12 weeks One Impairment R knee flexion AROM limited to 80 deg Short Term Goal (STG) Pt will improve R knee flexion AROM to at least 90 deg in order to demonstrate improved mobility for gait, stairs, and transfers 11/05/23: 90 deg flexion STG Duration 6 weeks MET Locomotive Inspector Goal (LTG) Pt will improve R knee flexion AROM to at least 100 deg in order to demonstrate improved mobility for gait, stairs, and transfers LTG Duration 12 weeks Progress Towards Goals Progress Towards Goals Progressing Toward Goals Assessment Summary Assessment Pt tolerated session well. Demonstates 90 deg R knee flexion and lacking 10 deg of extension. Pt's gait improving but still limited. PT recommended that pt continue to use spc for ambulation for safety and balance. Demonstrates better STS from stable, requires 2 hand assist from lower surface but able to perform from elevated surface without UE assistance. Relies on momentum but reduced with cueing, especially for positioning. Hip abduction still most limiting factor due to tone and weakness; small improvement with verbal and tactile cueing. Pt R knee AROM still limiting factor for patellar mobility, exercise, and gait. Physical Therapy Plan Frequency and Duration Frequency of Treatment 1-2/wk Duration of treatment (weeks) 12 Plan of Care Start Date 10/10/23 Plan of Care End Date 01/09/24 Therapeutic Interventions Therapeutic Interventions Balance Training,Coordination Training,Gait Training,Home Exercise Program,Joint Mobilizations,Manual Therapy, Neuromuscular Re-education, Orthotic/Prosthetic Management ,Patient/Caregiver Education, Self-Care/Home Management, Sensory Integration,Soft Tissue Mobilization,Taping, Therapeutic Activities, Therapeutic Exercises Modalities Cold Pack/Ice Massage,Hot Packs Other Therapeutic Interventions spasticity management techniques Next Visit Focus/Plan Next Note Type Treatment Note Next Visit Plan Next session: 2 MWT for goal; side steps at bar or plinth. Cont TKE with band, STS with band. Trial assisted squat with hand support, warm up on stepper. standing calf stretch (MARIA E), seated toe raises (DF) and banded DF Continue manual therapy for scar especially for proximal portion, distal hamstring, swelling management. Update HEP
--- NOTE | 2023-11-12 14:50 | PT.OTN ---
Current Diagnoses Stiffness of right knee, not elsewhere classified (11/12/23) Other lack of coordination (11/12/23) Weakness (11/12/23) Presence of right artificial knee joint (11/12/23) Physical Therapy Treatment Note PT-OP-A Visit Information Start: 10/10/23 07:27 Freq: Status: Active Protocol: Document 11/12/23 13:47 TS (Rec: 11/12/23 14:50 TS [id number]) Out-Patient Physical Therapy Visit Information Visit Information Visit Type Treatment Note Visit Start Time 13:45 Visit Stop Time 14:28 Visit Number 7 Number of MINCEMEAT MAKER Visits 1 PT-OP-B Current Condition Start: 10/10/23 07:27 Freq: Status: Active Protocol: Document 10/10/23 09:46 NM (Rec: 10/10/23 10:33 NM [id number]) Current Condition History of Current Condition Onset Date DOS 08/05/23 Current Complaints pain, mobility, strength History of Current Condition Pt presents s/p R TKA on . He was in a SNF following his surgery for 1 month. Presents with live-in helper, Ines. Pt was using FWW post -operatively but recently began using spc in R hand. 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 States walker aggravates L arm. Pt reports getting stronger overall since discharge from SNF. He had PT at [facility], PT. States ambulated 400 ft yesterday with spc, R knee aches him. Pt has not fallen in 1.5 years. Prior to surgery, pt was using FWW and spc. Pt also had spacer placed in his RLE due to shorter length (esta. during surgery), which has caused some cramping. Has had previous PT for knee (last fall) and for his L arm. He does some workouts at home, including sit and be fit, yanira [place]. 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 No longer on baclofen due side effects. Pt does have stairs in his home, states can do without any struggle. Treatment Goals Patient/Caregiver Goals get up from floor, improve walking, strength PT-OP-C Subjective Start: 10/10/23 07:27 Freq: Status: Active Protocol: Document 11/12/23 13:47 TS (Rec: 11/12/23 14:50 TS [id number]) OP-PT Subjective Patient Comments Patient Comments Pt reports visit to ortho office for follow up appointment. He is doing well but still lacks flexion in his knee. He has some discomfort when bending his knee and has pain in his L shoulder this afternoon. He feels like his activity tolerance is improving. PT-OP-E Functional Tests Start: 10/10/23 07:27 Freq: Status: Active Protocol: Document 10/10/23 09:46 NM (Rec: 10/10/23 16:52 NM [id number]) Functional Tests 2 Minute Walk Test Distance 93 ft Device Used spc Comments CGA; fatiguing; mild knee pain ; strong hip ADD/valgus/ pronation PT-OP-F Manual Assessment Start: 10/10/23 07:27 Freq: Status: Active Protocol: Document 10/10/23 09:46 NM (Rec: 10/10/23 10:33 NM [id number]) Manual Assessments Soft Tissue Assessment Soft Tissue Mobility Assessment Increased tone and decreased tissue length of hamstrings B, L adductors; increased ankle DF B Joint Mobility Assessment Joint Mobility Assessment Decreased PROM and AROM of R knee, hip. Decreased AROM and increased stability due to spasticity of LLE PT-OP-G Mobility & Gait Start: 10/10/23 07:27 Freq: Status: Active Protocol: Document 10/10/23 09:46 NM (Rec: 10/10/23 16:54 NM [id number]) OP Mobility Evaluation Bed Mobility Supine to and from Sit min A Transfers Sit to Stand with min A from low chair, several attempts CGA to steady with initial balance and hand assist to spc , several attempts to rise OP Gait Assessment Gait Gait Assistance Required: Contact Guard Assist Distance (Feet) 93 Assistive Devices Assistive Device Gait Belt,Straight Cane Gait Deviations General Gait Pattern Antalgic,Decreased Stride Length,Decreased Feet Clearance,Flexed Trunk,Narrow Based Gait Factors Limiting Gait Function Factors Limiting Gait Function Abnormal Tonal Influences, Decreased Activity Tolerance, Decreased Strength,Limited Range of Motion,Pain,Poor Balance Comments Gait Comments Demos strong B hip adduction into valgus with pronation, B flexed knees and increased ankle dorsiflexion. spc in R hand with moderate dependence for stability and to assist with LLE. Decreased foot clearance PT-OP-H Neuro Start: 10/10/23 07:27 Freq: Status: Active Protocol: Document 10/10/23 09:46 NM (Rec: 10/10/23 10:33 NM [id number]) Muscle Tone Tone Assessment Left Lower Extremity Flexor Tone Description Moderate Hypertonicity Muscle Tone Comments Modified paloma scale: 3 L knee PT-OP-J Posture/Palpation/Skin Start: 10/10/23 07:27 Freq: Status: Active Protocol: Document 10/10/23 09:46 NM (Rec: 10/10/23 16:30 NM [id number]) Posture Evaluation Position Standing Head/C-Spine Posture Forward Head T-Spine Posture Increased Kyphosis Arm Posture (L) Internally Rotated Pelvis Posture Anteriorly Tilted Weight Distribution Weight Shifted Right Hip Posture (L) Internally Rotated,(L) Adducted,(R) Adducted Knee Posture (L) Genu Valgus,(R) Genu Valgus,(L) Excess Flexion,(R) Excess Flexion Patellar Posture (L) Superior,(R) Superior Ankle/Foot Posture (L) Dorsiflexed,(R) Dorsiflexed,(L) Pronated Palpation Assessment Location R knee Palpation Details No tenderness along incision or joint line, patella Increased edema along entire lower RLE to knee Skin Assessment Incisional Assessment Incision Appearance/Comments Incision intact and healing well without scabbing, no signs or symptoms of infection PT-OP-K Range of Motion Start: 10/10/23 07:27 Freq: Status: Active Protocol: Document 11/05/23 09:47 NM (Rec: 11/05/23 10:28 NM [id number]) Knee Goniometric Range of Motion Knee Right Flexion Active (degrees) 90 Extension Active (degrees) 10 Comments Ie: 80 deg flex, lacking 18 deg ext 11/05/23: 90 deg flex, lacking 10 deg extension Left Flexion Active (degrees) 90 Extension Active (degrees) 9 PT-OP-M Strength Start: 10/10/23 07:27 Freq: Status: Active Protocol: Document 11/05/23 09:47 NM (Rec: 11/05/23 10:28 NM [id number]) Hip Strength Hip Manual Muscle Testing Right Flexion (L2) 4- Good- Extension (S1) 4- Good- Abduction 3+ Fair+ Adduction 4 Good Knee Strength Knee Manual Muscle Testing Right Flexion (S2) 4- Good- Extension (L3) 4- Good- Comments IE: 3+/5; No pain with resisted motion 11/05/23: 4-/5, pain free Left Flexion (S2) 3+ Fair+ Extension (L3) 3+ Fair+ PT-OP-Q Treatments Start: 10/10/23 07:27 Freq: Status: Active Protocol: Document 11/12/23 13:47 TS (Rec: 11/12/23 14:50 TS [id number]) Cardio Equipment Recumbent Stepper (Sci-Fit) Duration (Minutes) 6 Resistance 0 Seat Position 12 Other LE's only Therapeutic Exercises Sitting Exercises Banded DF Side bilateral Reps/Minutes 1x10 Comments AAROM, L>R in ROM Standing Exercises MARIA E Standing Exercise Name Calf stretch Reps/Minutes 2x30 TKE Resistance LVL 1 Equipment Used therapist holding band Reps/Minutes 1x10 Comments Cues for upright posture and quad act. STS Standing Exercise Name 1. 2 hand assist, 2. w/ B hand fwd from elevated plinth Resistance level 1 band at thighs to limit valgus Comments closeSBA w/ prn CGA; cued TKE, ant WS Manual Therapy Treatment Soft Tissue Mobilization R knee Body Location HS, quads, scar management Mobilization Type Instrument Assisted,Rolling, Other Intensity/Depth Moderate Body Position Hooklying Comments Scar mobilization w/gentle twisting, HS/quad distal> proximal PT-OP-T Assessment and Plan Start: 10/10/23 07:27 Freq: Status: Active Protocol: Document 11/12/23 13:47 TS (Rec: 11/12/23 14:50 TS [id number]) Physical Therapy Assessment Goals Five Impairment R hip and knee strength 3+/5 globally Short Term Goal (STG) Pt will improve R global hip and knee strength to at least 4-/5 MMT in order to demonstrate increased strength for gait, transfers, and standing endurance 11/05/23: hip abd 3+/5, all other hip/knee 4-/5 STG Duration 6 weeks PROGRESSING Metal Sander Goal (LTG) Pt will improve R global hip and knee strength to at least 4/5 MMT in order to demonstrate increased strength for gait, transfers, and standing endurance LTG Duration 12 weeks Four Impairment transfers Short Term Goal (STG) Pt will be able to perform STS transfer using LRAD or 1 hand assist on 1st attempt in order to demonstrate improved BLE strength and initial standing balance 11/16/23: pt able to do STS with B hand assist from standard chair, no UE assist from elevated plinth in 1st attempt for several reps STG Duration 8 weeks MET [facility] Goal (LTG) If appropriate, pt will be able to transfer from floor using at least 1 hand assist and with min A or less in order to demonstrate improved BLE strength in case of fall LTG Duration 12 weeks Three Impairment gait 93 ft 2 MWT Short Term Goal (STG) Pt will improve ambulation distance >100 ft with LRAD in order to demonstrate improved tolerance for short community and household ambulation 11/12/23: 138' STG Duration 6 weeks Metal Sander Goal (LTG) Pt will improve ambulation distance >150 ft with LRAD in order to demonstrate improved tolerance for short community and household ambulation LTG Duration 12 weeks Two Impairment R knee ext AROM limited to 18 deg Short Term Goal (STG) Pt will improve R knee extension AROM to 10 deg or less in order to demonstrate improved extension for stance, gait, and transfers 11/05/23: lacking 10 deg STG Duration 6 weeks MET [facility] Goal (LTG) Pt will improve R knee extension AROM to 5 deg or less in order to demonstrate improved extension for stance, gait, and transfers LTG Duration 12 weeks One Impairment R knee flexion AROM limited to 80 deg Short Term Goal (STG) Pt will improve R knee flexion AROM to at least 90 deg in order to demonstrate improved mobility for gait, stairs, and transfers 11/05/23: 90 deg flexion STG Duration 6 weeks MET Metal Sander Goal (LTG) Pt will improve R knee flexion AROM to at least 100 deg in order to demonstrate improved mobility for gait, stairs, and transfers LTG Duration 12 weeks Assessment Summary Assessment Pt progressed 2MWT to 138' with use of SPC, walking is very fatiguing for pt. AROM flexion 93D in supine and he continues to lack ~10D of ext. He demonstrates some carryover of STS technique and continues to need 2 UE's to stand. He would continue to benefit from PT to improve ROM , strength, gait and balance. Physical Therapy Plan Next Visit Focus/Plan Next Note Type Treatment Note Next Visit Plan Side steps, TKE, continue toe raise with band, manual therapy.
--- NOTE | 2023-11-20 12:47 | PT.OTN ---
Current Diagnoses Stiffness of right knee, not elsewhere classified (11/20/23) Other lack of coordination (11/20/23) Weakness (11/20/23) Presence of right artificial knee joint (11/20/23) Physical Therapy Treatment Note PT-OP-A Visit Information Start: 10/10/23 07:27 Freq: Status: Active Protocol: Document 11/20/23 09:47 NM (Rec: 11/20/23 10:33 NM [id number]) Out-Patient Physical Therapy Visit Information Visit Information Visit Type Treatment Note Visit Note caregiver Ines Gooden Visit Start Time 09:47 Visit Stop Time 10:29 Visit Number 8 Evaluation Information Evaluation Date 10/10/23 Precautions Precautions Cerebral palsy, fall risk, limited L UE use, postural changes lead to dizziness PT-OP-B Current Condition Start: 10/10/23 07:27 Freq: Status: Active Protocol: Document 10/10/23 09:46 NM (Rec: 10/10/23 10:33 NM [id number]) Current Condition History of Current Condition Onset Date DOS 08/05/23 Current Complaints pain, mobility, strength History of Current Condition Pt presents s/p R TKA on . He was in a SNF following his surgery for 1 month. Presents with live-in helper, Ines. Pt was using FWW post -operatively but recently began using spc in R hand. 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 States walker aggravates L arm. Pt reports getting stronger overall since discharge from SNF. He had PT at [facility], [facility]. States ambulated 400 ft yesterday with spc, R knee aches him. Pt has not fallen in 1.5 years. Prior to surgery, pt was using FWW and spc. Pt also had spacer placed in his RLE due to shorter length (esta. during surgery), which has caused some cramping. Has had previous PT for knee (last fall) and for his L arm. He does some workouts at home, including sit and be fit, LAQ, marches. 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 No longer on baclofen due side effects. Pt does have stairs in his home, states can do without any struggle. Treatment Goals Patient/Caregiver Goals get up from floor, improve walking, strength PT-OP-C Subjective Start: 10/10/23 07:27 Freq: Status: Active Protocol: Document 11/20/23 09:47 NM (Rec: 11/20/23 10:33 NM [id number]) OP-PT Subjective Patient Comments Patient Comments Pt went to pool the other day for the first time, which felt good on his legs but made his arm hurt. He reports that he has been compliant with HEP, vazquez squats. States ortho wants pt to continue to work on ROM PT-OP-E Functional Tests Start: 10/10/23 07:27 Freq: Status: Active Protocol: Document 10/10/23 09:46 NM (Rec: 10/10/23 16:52 NM [id number]) Functional Tests 2 Minute Walk Test Distance 93 ft Device Used spc Comments CGA; fatiguing; mild knee pain ; strong hip ADD/valgus/ pronation PT-OP-F Manual Assessment Start: 10/10/23 07:27 Freq: Status: Active Protocol: Document 10/10/23 09:46 NM (Rec: 10/10/23 10:33 NM [id number]) Manual Assessments Soft Tissue Assessment Soft Tissue Mobility Assessment Increased tone and decreased tissue length of hamstrings B, L adductors; increased ankle DF B Joint Mobility Assessment Joint Mobility Assessment Decreased PROM and AROM of R knee, hip. Decreased AROM and increased stability due to spasticity of LLE PT-OP-G Mobility & Gait Start: 10/10/23 07:27 Freq: Status: Active Protocol: Document 10/10/23 09:46 NM (Rec: 10/10/23 16:54 NM [id number]) OP Mobility Evaluation Bed Mobility Supine to and from Sit min A Transfers Sit to Stand with min A from low chair, several attempts CGA to steady with initial balance and hand assist to spc , several attempts to rise OP Gait Assessment Gait Gait Assistance Required: Contact Guard Assist Distance (Feet) 93 Assistive Devices Assistive Device Gait Belt,Straight Cane Gait Deviations General Gait Pattern Antalgic,Decreased Stride Length,Decreased Feet Clearance,Flexed Trunk,Narrow Based Gait Factors Limiting Gait Function Factors Limiting Gait Function Abnormal Tonal Influences, Decreased Activity Tolerance, Decreased Strength,Limited Range of Motion,Pain,Poor Balance Comments Gait Comments Demos strong B hip adduction into valgus with pronation, B flexed knees and increased ankle dorsiflexion. spc in R hand with moderate dependence for stability and to assist with LLE. Decreased foot clearance PT-OP-H Neuro Start: 10/10/23 07:27 Freq: Status: Active Protocol: Document 10/10/23 09:46 NM (Rec: 10/10/23 10:33 NM [id number]) Muscle Tone Tone Assessment Left Lower Extremity Flexor Tone Description Moderate Hypertonicity Muscle Tone Comments Modified paloma scale: 3 L knee PT-OP-J Posture/Palpation/Skin Start: 10/10/23 07:27 Freq: Status: Active Protocol: Document 10/10/23 09:46 NM (Rec: 10/10/23 16:30 NM [id number]) Posture Evaluation Position Standing Head/C-Spine Posture Forward Head T-Spine Posture Increased Kyphosis Arm Posture (L) Internally Rotated Pelvis Posture Anteriorly Tilted Weight Distribution Weight Shifted Right Hip Posture (L) Internally Rotated,(L) Adducted,(R) Adducted Knee Posture (L) Genu Valgus,(R) Genu Valgus,(L) Excess Flexion,(R) Excess Flexion Patellar Posture (L) Superior,(R) Superior Ankle/Foot Posture (L) Dorsiflexed,(R) Dorsiflexed,(L) Pronated Palpation Assessment Location R knee Palpation Details No tenderness along incision or joint line, patella Increased edema along entire lower RLE to knee Skin Assessment Incisional Assessment Incision Appearance/Comments Incision intact and healing well without scabbing, no signs or symptoms of infection PT-OP-K Range of Motion Start: 10/10/23 07:27 Freq: Status: Active Protocol: Document 11/05/23 09:47 NM (Rec: 11/05/23 10:28 NM [id number]) Knee Goniometric Range of Motion Knee Right Flexion Active (degrees) 90 Extension Active (degrees) 10 Comments Ie: 80 deg flex, lacking 18 deg ext 11/05/23: 90 deg flex, lacking 10 deg extension Left Flexion Active (degrees) 90 Extension Active (degrees) 9 PT-OP-M Strength Start: 10/10/23 07:27 Freq: Status: Active Protocol: Document 11/05/23 09:47 NM (Rec: 11/05/23 10:28 NM [id number]) Hip Strength Hip Manual Muscle Testing Right Flexion (L2) 4- Good- Extension (S1) 4- Good- Abduction 3+ Fair+ Adduction 4 Good Knee Strength Knee Manual Muscle Testing Right Flexion (S2) 4- Good- Extension (L3) 4- Good- Comments IE: 3+/5; No pain with resisted motion 11/05/23: 4-/5, pain free Left Flexion (S2) 3+ Fair+ Extension (L3) 3+ Fair+ PT-OP-Q Treatments Start: 10/10/23 07:27 Freq: Status: Active Protocol: Document 11/20/23 09:47 NM (Rec: 11/20/23 10:33 NM [id number]) Therapeutic Exercises Sitting Exercises Banded DF Side bilateral Resistance AROM Reps/Minutes 10 ea Comments L>R Standing Exercises heel raise Side bilateral Equipment Used B hand support on rail Reps/Minutes 2x10 side stepping Side bilateral Equipment Used B hand support on ballet bar Reps/Minutes 2 sets x 8 ft ea direction Comments very challenging for pt; CGA for safety as move to R calf stretch Standing Exercise Name staggered stance Side bilateral Reps/Minutes 10 deep breaths Comments cued for form squats Standing Exercise Name minisquat to chair Side bilateral Resistance level 2 band at thighs to limit valgus Equipment Used hand support at ballet bar Reps/Minutes 2x5 Comments cued hip abd; close SBA for safety TKE Resistance level 1 band Equipment Used therapist holding band Reps/Minutes 10 STS Standing Exercise Name 1 hand assist from chair (std chair) Resistance level 2 band at thighs to limit valgus Reps/Minutes several reps throughout Gait Training Gait Activity hurdles Device Used spc Level of Assistance Rashawn Surface stable Distance/Duration 10 minutes Treatment Focus foot clearance, knee flexion, hip flexion, less ADD Comments Modified to 3 tissue box Cued for wt shift, spc sequencing. Unable to clear hurdles due to decreased dorsiflexion and knee flex. Pt cirucmducts and adducts BLE as crossing. Easier to clear LLE than RLE. Limited by poor knee mobility Self-Care/Home Management Treatment Education Patient Education Joint Protection Other Education Educated on recommendation 2x/ wk to address R knee ROM vs only 1x/wk for PT due to finite time to improve ROM, especially since pt had delayed start to PT following surgery PT-OP-T Assessment and Plan Start: 10/10/23 07:27 Freq: Status: Active Protocol: Document 11/20/23 09:47 NM (Rec: 11/20/23 10:33 NM [id number]) Physical Therapy Assessment Goals Five Impairment R hip and knee strength 3+/5 globally Short Term Goal (STG) Pt will improve R global hip and knee strength to at least 4-/5 MMT in order to demonstrate increased strength for gait, transfers, and standing endurance 11/05/23: hip abd 3+/5, all other hip/knee 4-/5 STG Duration 6 weeks PROGRESSING Slip Cover Seamstress Goal (LTG) Pt will improve R global hip and knee strength to at least 4/5 MMT in order to demonstrate increased strength for gait, transfers, and standing endurance LTG Duration 12 weeks Four Impairment transfers Short Term Goal (STG) Pt will be able to perform STS transfer using LRAD or 1 hand assist on 1st attempt in order to demonstrate improved BLE strength and initial standing balance 11/16/23: pt able to do STS with B hand assist from standard chair, no UE assist from elevated plinth in 1st attempt for several reps STG Duration 8 weeks MET Slip Cover Seamstress Goal (LTG) If appropriate, pt will be able to transfer from floor using at least 1 hand assist and with min A or less in order to demonstrate improved BLE strength in case of fall LTG Duration 12 weeks Three Impairment gait 93 ft 2 MWT Short Term Goal (STG) Pt will improve ambulation distance >100 ft with LRAD in order to demonstrate improved tolerance for short community and household ambulation 11/12/23: 138' STG Duration 6 weeks [facility] Goal (LTG) Pt will improve ambulation distance >150 ft with LRAD in order to demonstrate improved tolerance for short community and household ambulation LTG Duration 12 weeks Two Impairment R knee ext AROM limited to 18 deg Short Term Goal (STG) Pt will improve R knee extension AROM to 10 deg or less in order to demonstrate improved extension for stance, gait, and transfers 11/05/23: lacking 10 deg STG Duration 6 weeks MET [facility] Goal (LTG) Pt will improve R knee extension AROM to 5 deg or less in order to demonstrate improved extension for stance, gait, and transfers LTG Duration 12 weeks One Impairment R knee flexion AROM limited to 80 deg Short Term Goal (STG) Pt will improve R knee flexion AROM to at least 90 deg in order to demonstrate improved mobility for gait, stairs, and transfers 11/05/23: 90 deg flexion STG Duration 6 weeks MET Slip Cover Seamstress Goal (LTG) Pt will improve R knee flexion AROM to at least 100 deg in order to demonstrate improved mobility for gait, stairs, and transfers LTG Duration 12 weeks Assessment Summary Assessment PT tolerated session well and demos good effort with all exercises. PT educated pt on performing HEP in entirety especially to promote knee flex and extension. Challenged by side steps, especially R foot clearance. Pt also challenged with hurdles; unable to clear foot and flex knee/hip enough for standard héctor. Still challenged when modified to tissue box (2). Moderate-maximal cueing required for weight shifting and minimize circumduction. Pt still demonstrates limitations in knee flexion and extension AROM. PT recommended that pt come 2x/wk to continue to address ROM deficits; but pt declines despite education. Physical Therapy Plan Frequency and Duration Frequency of Treatment 1-2/wk Duration of treatment (weeks) 12 Plan of Care Start Date 10/10/23 Plan of Care End Date 01/09/24 Therapeutic Interventions Therapeutic Interventions Balance Training,Coordination Training,Gait Training,Home Exercise Program,Joint Mobilizations,Manual Therapy, Neuromuscular Re-education, Orthotic/Prosthetic Management ,Patient/Caregiver Education, Self-Care/Home Management, Sensory Integration,Soft Tissue Mobilization,Taping, Therapeutic Activities, Therapeutic Exercises Modalities Cold Pack/Ice Massage,Hot Packs Other Therapeutic Interventions spasticity management techniques Next Visit Focus/Plan Next Note Type Treatment Note Next Visit Plan Manual therapy to address knee flex and ext, then follow with exercise Side steps at bar, TKE, squat vs leg press, continue toe raise with band, manual therapy. Trial foot clearance/knee flexion over hula hoop or yard stick > box > héctor
--- NOTE | 2023-11-26 15:07 | PT.OTN ---
Current Diagnoses Stiffness of right knee, not elsewhere classified (11/26/23) Other lack of coordination (11/26/23) Weakness (11/26/23) Presence of right artificial knee joint (11/26/23) Physical Therapy Treatment Note PT-OP-A Visit Information Start: 10/10/23 07:27 Freq: Status: Active Protocol: Document 11/26/23 13:40 TS (Rec: 11/26/23 15:07 TS [id number]) Out-Patient Physical Therapy Visit Information Visit Information Visit Type Treatment Note Visit Note caregiver Ines Gooden Visit Start Time 13:46 Visit Stop Time 14:30 Visit Number 9 Number of INTELLIGENCE SPECIALIST Visits 1 PT-OP-B Current Condition Start: 10/10/23 07:27 Freq: Status: Active Protocol: Document 10/10/23 09:46 NM (Rec: 10/10/23 10:33 NM [id number]) Current Condition History of Current Condition Onset Date DOS 08/05/23 Current Complaints pain, mobility, strength History of Current Condition Pt presents s/p R TKA on . He was in a SNF following his surgery for 1 month. Presents with live-in helper, Ines. Pt was using FWW post -operatively but recently began using spc in R hand. 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 States walker aggravates L arm. Pt reports getting stronger overall since discharge from SNF. He had PT at SNF, [facility]. States ambulated 400 ft yesterday with spc, R knee aches him. Pt has not fallen in 1.5 years. Prior to surgery, pt was using FWW and spc. Pt also had spacer placed in his RLE due to shorter length (esta. during surgery), which has caused some cramping. Has had previous PT for knee (last fall) and for his L arm. He does some workouts at home, including sit and be fit, yanira [place]. 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 No longer on baclofen due side effects. Pt does have stairs in his home, states can do without any struggle. Treatment Goals Patient/Caregiver Goals get up from floor, improve walking, strength PT-OP-C Subjective Start: 10/10/23 07:27 Freq: Status: Active Protocol: Document 11/26/23 13:40 TS (Rec: 11/26/23 15:07 TS [id number]) OP-PT Subjective Patient Comments Patient Comments Pt reports he is walking more and diong his HEP. PT-OP-E Functional Tests Start: 10/10/23 07:27 Freq: Status: Active Protocol: Document 10/10/23 09:46 NM (Rec: 10/10/23 16:52 NM [id number]) Functional Tests 2 Minute Walk Test Distance 93 ft Device Used spc Comments CGA; fatiguing; mild knee pain ; strong hip ADD/valgus/ pronation PT-OP-F Manual Assessment Start: 10/10/23 07:27 Freq: Status: Active Protocol: Document 10/10/23 09:46 NM (Rec: 10/10/23 10:33 NM [id number]) Manual Assessments Soft Tissue Assessment Soft Tissue Mobility Assessment Increased tone and decreased tissue length of hamstrings B, L adductors; increased ankle DF B Joint Mobility Assessment Joint Mobility Assessment Decreased PROM and AROM of R knee, hip. Decreased AROM and increased stability due to spasticity of LLE PT-OP-G Mobility & Gait Start: 10/10/23 07:27 Freq: Status: Active Protocol: Document 10/10/23 09:46 NM (Rec: 10/10/23 16:54 NM [id number]) OP Mobility Evaluation Bed Mobility Supine to and from Sit min A Transfers Sit to Stand with min A from low chair, several attempts CGA to steady with initial balance and hand assist to spc , several attempts to rise OP Gait Assessment Gait Gait Assistance Required: Contact Guard Assist Distance (Feet) 93 Assistive Devices Assistive Device Gait Belt,Straight Cane Gait Deviations General Gait Pattern Antalgic,Decreased Stride Length,Decreased Feet Clearance,Flexed Trunk,Narrow Based Gait Factors Limiting Gait Function Factors Limiting Gait Function Abnormal Tonal Influences, Decreased Activity Tolerance, Decreased Strength,Limited Range of Motion,Pain,Poor Balance Comments Gait Comments Demos strong B hip adduction into valgus with pronation, B flexed knees and increased ankle dorsiflexion. spc in R hand with moderate dependence for stability and to assist with LLE. Decreased foot clearance PT-OP-H Neuro Start: 10/10/23 07:27 Freq: Status: Active Protocol: Document 10/10/23 09:46 NM (Rec: 10/10/23 10:33 NM [id number]) Muscle Tone Tone Assessment Left Lower Extremity Flexor Tone Description Moderate Hypertonicity Muscle Tone Comments Modified paloma scale: 3 L knee PT-OP-J Posture/Palpation/Skin Start: 10/10/23 07:27 Freq: Status: Active Protocol: Document 10/10/23 09:46 NM (Rec: 10/10/23 16:30 NM [id number]) Posture Evaluation Position Standing Head/C-Spine Posture Forward Head T-Spine Posture Increased Kyphosis Arm Posture (L) Internally Rotated Pelvis Posture Anteriorly Tilted Weight Distribution Weight Shifted Right Hip Posture (L) Internally Rotated,(L) Adducted,(R) Adducted Knee Posture (L) Genu Valgus,(R) Genu Valgus,(L) Excess Flexion,(R) Excess Flexion Patellar Posture (L) Superior,(R) Superior Ankle/Foot Posture (L) Dorsiflexed,(R) Dorsiflexed,(L) Pronated Palpation Assessment Location R knee Palpation Details No tenderness along incision or joint line, patella Increased edema along entire lower RLE to knee Skin Assessment Incisional Assessment Incision Appearance/Comments Incision intact and healing well without scabbing, no signs or symptoms of infection PT-OP-K Range of Motion Start: 10/10/23 07:27 Freq: Status: Active Protocol: Document 11/05/23 09:47 NM (Rec: 11/05/23 10:28 NM [id number]) Knee Goniometric Range of Motion Knee Right Flexion Active (degrees) 90 Extension Active (degrees) 10 Comments Ie: 80 deg flex, lacking 18 deg ext 11/05/23: 90 deg flex, lacking 10 deg extension Left Flexion Active (degrees) 90 Extension Active (degrees) 9 PT-OP-M Strength Start: 10/10/23 07:27 Freq: Status: Active Protocol: Document 11/05/23 09:47 NM (Rec: 11/05/23 10:28 NM [id number]) Hip Strength Hip Manual Muscle Testing Right Flexion (L2) 4- Good- Extension (S1) 4- Good- Abduction 3+ Fair+ Adduction 4 Good Knee Strength Knee Manual Muscle Testing Right Flexion (S2) 4- Good- Extension (L3) 4- Good- Comments IE: 3+/5; No pain with resisted motion 11/05/23: 4-/5, pain free Left Flexion (S2) 3+ Fair+ Extension (L3) 3+ Fair+ PT-OP-Q Treatments Start: 10/10/23 07:27 Freq: Status: Active Protocol: Document 11/26/23 13:40 TS (Rec: 11/26/23 15:07 TS [id number]) Therapeutic Exercises Sitting Exercises Banded DF Side bilateral Resistance AROM Reps/Minutes 10 ea Comments L>R Standing Exercises heel raise Side bilateral Equipment Used B hand support on rail Reps/Minutes 2x10 side stepping Side bilateral Equipment Used B hand support on ballet bar Reps/Minutes 2 sets x 8 ft ea direction Comments very challenging for pt; CGA for safety as move to R calf stretch Standing Exercise Name staggered stance Side bilateral Reps/Minutes 10 deep breaths Comments cued for form STS Standing Exercise Name 1 hand assist/no ue assist Reps/Minutes x5 Gait Training Gait Activity hurdles Device Used spc Level of Assistance Rashawn Surface stable Distance/Duration 8 minutes Treatment Focus foot clearance, knee flexion, hip flexion, less ADD Comments Modified to 3 tissue box, requires occasional handrail support on // bars. Has easier time clearing L foot than R. Manual Therapy Treatment Soft Tissue Mobilization R knee Body Location HS, quads, scar management Mobilization Type Instrument Assisted,Rolling, Other Intensity/Depth Moderate Body Position Hooklying Comments HS/quad distal>proximal. Demonstrated rolling pin. PT-OP-T Assessment and Plan Start: 10/10/23 07:27 Freq: Status: Active Protocol: Document 11/26/23 13:40 TS (Rec: 11/26/23 15:07 [id number]) Physical Therapy Assessment Goals Five Impairment R hip and knee strength 3+/5 globally Short Term Goal (STG) Pt will improve R global hip and knee strength to at least 4-/5 MMT in order to demonstrate increased strength for gait, transfers, and standing endurance 11/05/23: hip abd 3+/5, all other hip/knee 4-/5 STG Duration 6 weeks PROGRESSING Long-Term Goal (LTG) Pt will improve R global hip and knee strength to at least 4/5 MMT in order to demonstrate increased strength for gait, transfers, and standing endurance LTG Duration 12 weeks Four Impairment transfers Short Term Goal (STG) Pt will be able to perform STS transfer using LRAD or 1 hand assist on 1st attempt in order to demonstrate improved BLE strength and initial standing balance 11/16/23: pt able to do STS with B hand assist from standard chair, no UE assist from elevated plinth in 1st attempt for several reps STG Duration 8 weeks MET Security Services Manager Goal (LTG) If appropriate, pt will be able to transfer from floor using at least 1 hand assist and with min A or less in order to demonstrate improved BLE strength in case of fall LTG Duration 12 weeks Three Impairment gait 93 ft 2 MWT Short Term Goal (STG) Pt will improve ambulation distance >100 ft with LRAD in order to demonstrate improved tolerance for short community and household ambulation 11/12/23: 138' STG Duration 6 weeks Long-Term Goal (LTG) Pt will improve ambulation distance >150 ft with LRAD in order to demonstrate improved tolerance for short community and household ambulation LTG Duration 12 weeks Two Impairment R knee ext AROM limited to 18 deg Short Term Goal (STG) Pt will improve R knee extension AROM to 10 deg or less in order to demonstrate improved extension for stance, gait, and transfers 11/05/23: lacking 10 deg STG Duration 6 weeks MET Long-Term Goal (LTG) Pt will improve R knee extension AROM to 5 deg or less in order to demonstrate improved extension for stance, gait, and transfers LTG Duration 12 weeks One Impairment R knee flexion AROM limited to 80 deg Short Term Goal (STG) Pt will improve R knee flexion AROM to at least 90 deg in order to demonstrate improved mobility for gait, stairs, and transfers 11/05/23: 90 deg flexion STG Duration 6 weeks MET Security Services Manager Goal (LTG) Pt will improve R knee flexion AROM to at least 100 deg in order to demonstrate improved mobility for gait, stairs, and transfers LTG Duration 12 weeks Assessment Summary Assessment Pt has diffiuclty clearing 3 tissue box leading with RLE, easier to clear box with L foot. Continued to instruct pt in knee flex/ext HEP to improve ROM, he lacks flex/ext in R knee. He demonstrates some carryover of STS technique. Physical Therapy Plan Next Visit Focus/Plan Next Note Type Treatment Note Next Visit Plan Continue side steps, TKE, squats vs leg press, manual therapy. Assess use of rolling pin for manual therapy.
--- NOTE | 2023-12-09 16:42 | PT.OTN ---
Current Diagnoses Stiffness of right knee, not elsewhere classified (12/09/23) Other lack of coordination (12/09/23) Weakness (12/09/23) Presence of right artificial knee joint (12/09/23) Physical Therapy Treatment Note PT-OP-A Visit Information Start: 10/10/23 07:27 Freq: Status: Active Protocol: Document 12/09/23 13:38 TS (Rec: 12/09/23 16:42 TS [id number]) Out-Patient Physical Therapy Visit Information Visit Information Visit Type Treatment Note Visit Note caregiver Ines Gooden Visit Start Time 13:40 Visit Stop Time 14:20 Visit Number 10 Number of FOREIGN DIPLOMAT Visits 2 PT-OP-B Current Condition Start: 10/10/23 07:27 Freq: Status: Active Protocol: Document 10/10/23 09:46 NM (Rec: 10/10/23 10:33 NM [id number]) Current Condition History of Current Condition Onset Date DOS 08/05/23 Current Complaints pain, mobility, strength History of Current Condition Pt presents s/p R TKA on . He was in a SNF following his surgery for 1 month. Presents with live-in helper, Ines. Pt was using FWW post -operatively but recently began using spc in R hand. 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 States walker aggravates L arm. Pt reports getting stronger overall since discharge from SNF. He had PT at SNF, [facility]. States ambulated 400 ft yesterday with spc, R knee aches him. Pt has not fallen in 1.5 years. Prior to surgery, pt was using FWW and spc. Pt also had spacer placed in his RLE due to shorter length (esta. during surgery), which has caused some cramping. Has had previous PT for knee (last fall) and for his L arm. He does some workouts at home, including sit and be fit, yanira IRVING. 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 No longer on baclofen due side effects. Pt does have stairs in his home, states can do without any struggle. Treatment Goals Patient/Caregiver Goals get up from floor, improve walking, strength PT-OP-C Subjective Start: 10/10/23 07:27 Freq: Status: Active Protocol: Document 12/09/23 13:38 TS (Rec: 12/09/23 16:42 TS [id number]) OP-PT Subjective Patient Comments Patient Comments Pt reports doing his HEP and walking about 125 yards at a time with his walker. He also reports pain in his R adductors, maybe a strain. PT-OP-E Functional Tests Start: 10/10/23 07:27 Freq: Status: Active Protocol: Document 10/10/23 09:46 NM (Rec: 10/10/23 16:52 NM [id number]) Functional Tests 2 Minute Walk Test Distance 93 ft Device Used spc Comments CGA; fatiguing; mild knee pain ; strong hip ADD/valgus/ pronation PT-OP-F Manual Assessment Start: 10/10/23 07:27 Freq: Status: Active Protocol: Document 10/10/23 09:46 NM (Rec: 10/10/23 10:33 NM [id number]) Manual Assessments Soft Tissue Assessment Soft Tissue Mobility Assessment Increased tone and decreased tissue length of hamstrings B, L adductors; increased ankle DF B Joint Mobility Assessment Joint Mobility Assessment Decreased PROM and AROM of R knee, hip. Decreased AROM and increased stability due to spasticity of LLE PT-OP-G Mobility & Gait Start: 10/10/23 07:27 Freq: Status: Active Protocol: Document 10/10/23 09:46 NM (Rec: 10/10/23 16:54 NM [id number]) OP Mobility Evaluation Bed Mobility Supine to and from Sit min A Transfers Sit to Stand with min A from low chair, several attempts CGA to steady with initial balance and hand assist to spc , several attempts to rise OP Gait Assessment Gait Gait Assistance Required: Contact Guard Assist Distance (Feet) 93 Assistive Devices Assistive Device Gait Belt,Straight Cane Gait Deviations General Gait Pattern Antalgic,Decreased Stride Length,Decreased Feet Clearance,Flexed Trunk,Narrow Based Gait Factors Limiting Gait Function Factors Limiting Gait Function Abnormal Tonal Influences, Decreased Activity Tolerance, Decreased Strength,Limited Range of Motion,Pain,Poor Balance Comments Gait Comments Demos strong B hip adduction into valgus with pronation, B flexed knees and increased ankle dorsiflexion. spc in R hand with moderate dependence for stability and to assist with LLE. Decreased foot clearance PT-OP-H Neuro Start: 10/10/23 07:27 Freq: Status: Active Protocol: Document 10/10/23 09:46 NM (Rec: 10/10/23 10:33 NM [id number]) Muscle Tone Tone Assessment Left Lower Extremity Flexor Tone Description Moderate Hypertonicity Muscle Tone Comments Modified paloma scale: 3 L knee PT-OP-J Posture/Palpation/Skin Start: 10/10/23 07:27 Freq: Status: Active Protocol: Document 10/10/23 09:46 NM (Rec: 10/10/23 16:30 NM [id number]) Posture Evaluation Position Standing Head/C-Spine Posture Forward Head T-Spine Posture Increased Kyphosis Arm Posture (L) Internally Rotated Pelvis Posture Anteriorly Tilted Weight Distribution Weight Shifted Right Hip Posture (L) Internally Rotated,(L) Adducted,(R) Adducted Knee Posture (L) Genu Valgus,(R) Genu Valgus,(L) Excess Flexion,(R) Excess Flexion Patellar Posture (L) Superior,(R) Superior Ankle/Foot Posture (L) Dorsiflexed,(R) Dorsiflexed,(L) Pronated Palpation Assessment Location R knee Palpation Details No tenderness along incision or joint line, patella Increased edema along entire lower RLE to knee Skin Assessment Incisional Assessment Incision Appearance/Comments Incision intact and healing well without scabbing, no signs or symptoms of infection PT-OP-K Range of Motion Start: 10/10/23 07:27 Freq: Status: Active Protocol: Document 11/05/23 09:47 NM (Rec: 11/05/23 10:28 NM [id number]) Knee Goniometric Range of Motion Knee Right Flexion Active (degrees) 90 Extension Active (degrees) 10 Comments Ie: 80 deg flex, lacking 18 deg ext 11/05/23: 90 deg flex, lacking 10 deg extension Left Flexion Active (degrees) 90 Extension Active (degrees) 9 PT-OP-M Strength Start: 10/10/23 07:27 Freq: Status: Active Protocol: Document 11/05/23 09:47 NM (Rec: 11/05/23 10:28 NM [id number]) Hip Strength Hip Manual Muscle Testing Right Flexion (L2) 4- Good- Extension (S1) 4- Good- Abduction 3+ Fair+ Adduction 4 Good Knee Strength Knee Manual Muscle Testing Right Flexion (S2) 4- Good- Extension (L3) 4- Good- Comments IE: 3+/5; No pain with resisted motion 11/05/23: 4-/5, pain free Left Flexion (S2) 3+ Fair+ Extension (L3) 3+ Fair+ PT-OP-Q Treatments Start: 10/10/23 07:27 Freq: Status: Active Protocol: Document 12/09/23 13:38 TS (Rec: 12/09/23 16:42 TS [id number]) Therapeutic Exercises Supine Exercises bridge Supine Exercise Name HEP Side bilateral Resistance level 1 band at thighs for abduction Reps/Minutes 2x5 with small hold at end range Comments cued for glute squeeze, core and breathing quad set Supine Exercise Name HEP Side right Resistance AROM Equipment Used pillow under knee; PT facilitating activation w/ tapping Reps/Minutes 1x5 w/ 3 hold Comments trialed 1/2 foam roller but unable; small activation, no heel lift Standing Exercises heel raise Side bilateral Equipment Used w/ 4WW Reps/Minutes 2x10 TKE Resistance level 2 band Equipment Used therapist holding band Reps/Minutes 10 STS Standing Exercise Name 1 hand assist/no ue assist Reps/Minutes x5 Gait Training Gait Activity hurdles Device Used // bars Surface stable Comments 3x6' Manual Therapy Treatment Soft Tissue Mobilization R knee Body Location HS, quads, scar management Mobilization Type Rolling,Other Intensity/Depth Moderate Body Position Hooklying Comments HS/quad distal>proximal. Demonstrated rolling pin. PT-OP-T Assessment and Plan Start: 10/10/23 07:27 Freq: Status: Active Protocol: Document 12/09/23 13:38 TS (Rec: 12/09/23 16:42 TS [id number]) Physical Therapy Assessment Goals Five Impairment R hip and knee strength 3+/5 globally Short Term Goal (STG) Pt will improve R global hip and knee strength to at least 4-/5 MMT in order to demonstrate increased strength for gait, transfers, and standing endurance 11/05/23: hip abd 3+/5, all other hip/knee 4-/5 STG Duration 6 weeks PROGRESSING Correction Goal (LTG) Pt will improve R global hip and knee strength to at least 4/5 MMT in order to demonstrate increased strength for gait, transfers, and standing endurance LTG Duration 12 weeks Four Impairment transfers Short Term Goal (STG) Pt will be able to perform STS transfer using LRAD or 1 hand assist on 1st attempt in order to demonstrate improved BLE strength and initial standing balance 11/16/23: pt able to do STS with B hand assist from standard chair, no UE assist from elevated plinth in 1st attempt for several reps STG Duration 8 weeks MET Correction Goal (LTG) If appropriate, pt will be able to transfer from floor using at least 1 hand assist and with min A or less in order to demonstrate improved BLE strength in case of fall LTG Duration 12 weeks Three Impairment gait 93 ft 2 MWT Short Term Goal (STG) Pt will improve ambulation distance >100 ft with LRAD in order to demonstrate improved tolerance for short community and household ambulation 11/12/23: 138' STG Duration 6 weeks Correction Goal (LTG) Pt will improve ambulation distance >150 ft with LRAD in order to demonstrate improved tolerance for short community and household ambulation LTG Duration 12 weeks Two Impairment R knee ext AROM limited to 18 deg Short Term Goal (STG) Pt will improve R knee extension AROM to 10 deg or less in order to demonstrate improved extension for stance, gait, and transfers 11/05/23: lacking 10 deg STG Duration 6 weeks MET Blast Furnace Blower Goal (LTG) Pt will improve R knee extension AROM to 5 deg or less in order to demonstrate improved extension for stance, gait, and transfers LTG Duration 12 weeks One Impairment R knee flexion AROM limited to 80 deg Short Term Goal (STG) Pt will improve R knee flexion AROM to at least 90 deg in order to demonstrate improved mobility for gait, stairs, and transfers 11/05/23: 90 deg flexion STG Duration 6 weeks MET Correction Goal (LTG) Pt will improve R knee flexion AROM to at least 100 deg in order to demonstrate improved mobility for gait, stairs, and transfers LTG Duration 12 weeks Assessment Summary Assessment Continued quad sets and TKE in standing for improvement in knee ext, pt continues to lack . He continues to have difficulty clearing hurdles and requires objects lower to the ground. He fatigues quickly with ex. He is ambulating with 4WW now, he has difficulty with his balance with use of his SPC. Physical Therapy Plan Next Visit Focus/Plan Next Note Type Treatment Note Next Visit Plan Continue hurdles, knee ext and manual therapy for quad/ hamstring, stairs if appropriate.
--- NOTE | 2023-12-16 16:27 | PT-OP ANOTE ---
PT called pt as pt has upcoming appt which is last scheduled appt via text on 12/17/23. Pt reports that in the time following the last PT session with [facility] on 12/08 and now, he is unable to ambulate due to pain in his R knee and his L arm. States started in the days following appt. Pt reports that he overdid it with exercise and ambulation. Following last appt on 12/08 for 2 consecutive days, pt did a 200 yd walk at home with walker and he felt it in the knee. Adductors are also bothering him from overuse. Has stopped swimming because too much in combination with daily walks and HEP. States has been getting botox treatment for adductors. He reports that his L arm bothers him after all activity, especially with use of walker or activities that require holding a surface. Has been using a wheelchair to assist with gait although used walker for MD appt today. Pt saw neurologist for 6 month follow up on Thursday 12/14, and the neurologist referred him to Dr. Chairez for pain management and to further assess rehabilitation. He also has a follow up with PCP Dr. Luna and pain MD on . Thinks that PT has been great here; however, wants to discharge from PT. PT recommended that pt inform referring ortho provider. Pt wants to discharge from PT. PT recommended that pt follow up with ortho as well to determine if still need PT or ok to discharge, also informed of plan of care date expiration 01/08 so must be seen before then with PT if wants to continue for knee depending on pain. Pt verbalizes understanding, states planning to discharge from PT and wants to be seen by new rehabilitation doctor to create new plan to manage pain.
--- NOTE | 2023-12-26 14:21 | PT-OP ANOTE ---
PT called referring surgeon's office and informed of last conversation with pt following pt canceling last appts. Rosangela, fire prevention officer, states that pt contacted doctor who recommended continuing with exercises and PT; however, pt has not returned to PT which PT informed office. Plan of care set to end 01/08, pt has to be seen before then, surgeon informed.
--- NOTE | 2024-01-29 12:55 | PT.OPDS ---
Current Diagnoses Stiffness of right knee, not elsewhere classified (12/09/23) Other lack of coordination (12/09/23) Weakness (12/09/23) Presence of right artificial knee joint (12/09/23) Visit Care Team Role Provider Type Dick Venegas MD Family Provider Non-Staff Specialty: Internal Medicine Pediatrics Address: [address] [place] [address], [id number] Email: [email or web address] Ramiro Luna MD Attending Provider Physician Primary Care Provider Referring Provider Specialty: Internal Medicine Address: [address] [place] [address], [id number] Email: [email or web address] Visit Number Visit Number 10 Discharge Summary PT-OP-B Current Condition Start: 10/10/23 07:27 Freq: Status: Active Protocol: Document 10/10/23 09:46 NM (Rec: 10/10/23 10:33 NM [id number]) Current Condition History of Current Condition Onset Date DOS 08/05/23 Current Complaints pain, mobility, strength History of Current Condition Pt presents s/p R TKA on . He was in a SNF following his surgery for 1 month. Presents with live-in helper, Ines. Pt was using FWW post -operatively but recently began using spc in R hand. 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 States walker aggravates L arm. Pt reports getting stronger overall since discharge from SNF. He had PT at [facility], [facility]. States ambulated 400 ft yesterday with spc, R knee aches him. Pt has not fallen in 1.5 years. Prior to surgery, pt was using FWW and spc. Pt also had spacer placed in his RLE due to shorter length (esta. during surgery), which has caused some cramping. Has had previous PT for knee (last fall) and for his L arm. He does some workouts at home, including sit and be fit, LAQ, marches. 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 No longer on baclofen due side effects. Pt does have stairs in his home, states can do without any struggle. Treatment Goals Patient/Caregiver Goals get up from floor, improve walking, strength PT-OP-C Subjective Start: 10/10/23 07:27 Freq: Status: Active Protocol: Document 12/09/23 13:38 TS (Rec: 12/09/23 16:42 TS [id number]) OP-PT Subjective Patient Comments Patient Comments Pt reports doing his HEP and walking about 125 yards at a time with his walker. He also reports pain in his R adductors, maybe a strain. PT-OP-E Functional Tests Start: 10/10/23 07:27 Freq: Status: Active Protocol: Document 10/10/23 09:46 NM (Rec: 10/10/23 16:52 NM [id number]) Functional Tests 2 Minute Walk Test Distance 93 ft Device Used spc Comments CGA; fatiguing; mild knee pain ; strong hip ADD/valgus/ pronation PT-OP-F Manual Assessment Start: 10/10/23 07:27 Freq: Status: Active Protocol: Document 10/10/23 09:46 NM (Rec: 10/10/23 10:33 NM [id number]) Manual Assessments Soft Tissue Assessment Soft Tissue Mobility Assessment Increased tone and decreased tissue length of hamstrings B, L adductors; increased ankle DF B Joint Mobility Assessment Joint Mobility Assessment Decreased PROM and AROM of R knee, hip. Decreased AROM and increased stability due to spasticity of LLE PT-OP-G Mobility & Gait Start: 10/10/23 07:27 Freq: Status: Active Protocol: Document 10/10/23 09:46 NM (Rec: 10/10/23 16:54 NM [id number]) OP Mobility Evaluation Bed Mobility Supine to and from Sit min A Transfers Sit to Stand with min A from low chair, several attempts CGA to steady with initial balance and hand assist to spc , several attempts to rise OP Gait Assessment Gait Gait Assistance Required: Contact Guard Assist Distance (Feet) 93 Assistive Devices Assistive Device Gait Belt,Straight Cane Gait Deviations General Gait Pattern Antalgic,Decreased Stride Length,Decreased Feet Clearance,Flexed Trunk,Narrow Based Gait Factors Limiting Gait Function Factors Limiting Gait Function Abnormal Tonal Influences, Decreased Activity Tolerance, Decreased Strength,Limited Range of Motion,Pain,Poor Balance Comments Gait Comments Demos strong B hip adduction into valgus with pronation, B flexed knees and increased ankle dorsiflexion. spc in R hand with moderate dependence for stability and to assist with LLE. Decreased foot clearance PT-OP-H Neuro Start: 10/10/23 07:27 Freq: Status: Active Protocol: Document 10/10/23 09:46 NM (Rec: 10/10/23 10:33 NM [id number]) Muscle Tone Tone Assessment Left Lower Extremity Flexor Tone Description Moderate Hypertonicity Muscle Tone Comments Modified paloma scale: 3 L knee PT-OP-J Posture/Palpation/Skin Start: 10/10/23 07:27 Freq: Status: Active Protocol: Document 10/10/23 09:46 NM (Rec: 10/10/23 16:30 NM [id number]) Posture Evaluation Position Standing Head/C-Spine Posture Forward Head T-Spine Posture Increased Kyphosis Arm Posture (L) Internally Rotated Pelvis Posture Anteriorly Tilted Weight Distribution Weight Shifted Right Hip Posture (L) Internally Rotated,(L) Adducted,(R) Adducted Knee Posture (L) Genu Valgus,(R) Genu Valgus,(L) Excess Flexion,(R) Excess Flexion Patellar Posture (L) Superior,(R) Superior Ankle/Foot Posture (L) Dorsiflexed,(R) Dorsiflexed,(L) Pronated Palpation Assessment Location R knee Palpation Details No tenderness along incision or joint line, patella Increased edema along entire lower RLE to knee Skin Assessment Incisional Assessment Incision Appearance/Comments Incision intact and healing well without scabbing, no signs or symptoms of infection PT-OP-K Range of Motion Start: 10/10/23 07:27 Freq: Status: Active Protocol: Document 11/05/23 09:47 NM (Rec: 11/05/23 10:28 NM [id number]) Knee Goniometric Range of Motion Knee Right Flexion Active (degrees) 90 Extension Active (degrees) 10 Comments Ie: 80 deg flex, lacking 18 deg ext 11/05/23: 90 deg flex, lacking 10 deg extension Left Flexion Active (degrees) 90 Extension Active (degrees) 9 PT-OP-M Strength Start: 10/10/23 07:27 Freq: Status: Active Protocol: Document 11/05/23 09:47 NM (Rec: 11/05/23 10:28 NM [id number]) Hip Strength Hip Manual Muscle Testing Right Flexion (L2) 4- Good- Extension (S1) 4- Good- Abduction 3+ Fair+ Adduction 4 Good Knee Strength Knee Manual Muscle Testing Right Flexion (S2) 4- Good- Extension (L3) 4- Good- Comments IE: 3+/5; No pain with resisted motion 11/05/23: 4-/5, pain free Left Flexion (S2) 3+ Fair+ Extension (L3) 3+ Fair+ PT-OP-T Assessment and Plan Start: 10/10/23 07:27 Freq: Status: Active Protocol: Document 01/29/24 11:24 NM (Rec: 01/29/24 11:30 NM [id number]) Physical Therapy Assessment Goals Five Impairment R hip and knee strength 3+/5 globally Short Term Goal (STG) Pt will improve R global hip and knee strength to at least 4-/5 MMT in order to demonstrate increased strength for gait, transfers, and standing endurance 11/05/23: hip abd 3+/5, all other hip/knee 4-/5 STG Duration 6 weeks PROGRESSING Correction Goal (LTG) Pt will improve R global hip and knee strength to at least 4/5 MMT in order to demonstrate increased strength for gait, transfers, and standing endurance LTG Duration 12 weeks Four Impairment transfers Short Term Goal (STG) Pt will be able to perform STS transfer using LRAD or 1 hand assist on 1st attempt in order to demonstrate improved BLE strength and initial standing balance 11/16/23: pt able to do STS with B hand assist from standard chair, no UE assist from elevated plinth in 1st attempt for several reps STG Duration 8 weeks [employer] Att[employer] Goal (LTG) If appropriate, pt will be able to transfer from floor using at least 1 hand assist and with min A or less in order to demonstrate improved BLE strength in case of fall LTG Duration 12 weeks Three Impairment gait 93 ft 2 MWT Short Term Goal (STG) Pt will improve ambulation distance >100 ft with LRAD in order to demonstrate improved tolerance for short community and household ambulation 11/12/23: 138' STG Duration 6 weeks Correction Goal (LTG) Pt will improve ambulation distance >150 ft with LRAD in order to demonstrate improved tolerance for short community and household ambulation LTG Duration 12 weeks Two Impairment R knee ext AROM limited to 18 deg Short Term Goal (STG) Pt will improve R knee extension AROM to 10 deg or less in order to demonstrate improved extension for stance, gait, and transfers 11/05/23: lacking 10 deg STG Duration 6 weeks [employer] Att[employer] Goal (LTG) Pt will improve R knee extension AROM to 5 deg or less in order to demonstrate improved extension for stance, gait, and transfers LTG Duration 12 weeks One Impairment R knee flexion AROM limited to 80 deg Short Term Goal (STG) Pt will improve R knee flexion AROM to at least 90 deg in order to demonstrate improved mobility for gait, stairs, and transfers 11/05/23: 90 deg flexion STG Duration 6 weeks MET Correction Goal (LTG) Pt will improve R knee flexion AROM to at least 100 deg in order to demonstrate improved mobility for gait, stairs, and transfers LTG Duration 12 weeks Assessment Summary Assessment Pt was evaluated in September 2023 for R knee pain s/p R TKA in July 2023. Pt attended x9 sessions following evaluation. Pt was making slow progress toward his goals. 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 Pt was last seen in clinic on 12/09/23. He canceled his follow up appointments, including last scheduled appt on 12/17/23. PT called to alert pt of cancellation of last scheduled appt, and pt informed pt that he is not planning to return to PT. Pt was planning to follow up with pain management specialists as he reports overuse of his knees following ambulation 2 days at home. He is wanting to discharge from PT. PT educated pt on improving strength and flexibility in his R knee following surgery, in addition to recommendation for continuined PT with PT reassessing pt current status with plan ending on 01/09/24. Pt declines, requests discharge as he is planning to be seen by a new rehabilitation doctor. Physical Therapy Plan Frequency and Duration Frequency of Treatment 1-2/wk Duration of treatment (weeks) 12 Plan of Care Start Date 10/10/23 Plan of Care End Date 01/09/24 Therapeutic Interventions Therapeutic Interventions Balance Training,Coordination Training,Gait Training,Home Exercise Program,Joint Mobilizations,Manual Therapy, Neuromuscular Re-education, Orthotic/Prosthetic Management ,Patient/Caregiver Education, Self-Care/Home Management, Sensory Integration,Soft Tissue Mobilization,Taping, Therapeutic Activities, Therapeutic Exercises Modalities Cold Pack/Ice Massage,Hot Packs Other Therapeutic Interventions spasticity management techniques Discharge Physical Therapy Discharge Reasons Patient Request Discharge Comments Pt requested to discharge from PT on 12/16/23. He has not been seen in clinic since and his plan of care on 01/09/24. Pt is planning to be further assessed by a electrostatic paint operator and a different rehabilitation doctor. He will need a new referral to return to PT in future Next Visit Focus/Plan Next Note Type Discharge Summary Next Visit Plan discharge from PT
== END 2024-02-09 13:38 | disposition home or self-care (01) ==
LOC: PHYS 13:45
PROVIDERS: Family Provider Pediatrics; PCP Internal Medicine; Referring Provider Internal Medicine; Visit Provider Internal Medicine
DX: Z96.651 Presence of right artificial knee joint (principal); R53.1 Weakness; R27.8 Other lack of coordination; M25.661 Stiffness of right knee, not elsewhere classified
CPT/HCPCS: 97110; 97116; 97140; 97162

== ENCOUNTER → 2023-12-16 14:45 | Outpatient (CLI) | payer MEDICARE, SELFPAY ==
--- NOTE | 2023-12-16 | DI.RAD.S_ITS ---
PROCEDURE: XR SHOULDER LT MIN 2V INDICATIONS: LEFT SHOULDER PAIN TECHNIQUE: 2 views of the shoulder were acquired. COMPARISON: None. FINDINGS: Bones: No fractures or dislocations. No suspicious bony lesions. Visualized ribs appear intact. Glenohumeral and acromioclavicular joint space narrowing with associated osteophytosis. Soft tissues: No suspicious soft tissue calcifications. IMPRESSION: No acute bony abnormality. Moderate shoulder osteoarthritis. Dictated by: Richard Zavala M.D. on 12/16/2023 at 16:54 Approved by: Richard Zavala M.D. on 12/16/2023 at 16:55
== END ==
PROVIDERS: Family Provider Pediatrics; PCP Internal Medicine; Referring Provider Internal Medicine; Visit Provider Internal Medicine
DX: M79.2 Neuralgia and neuritis, unspecified (principal); M19.012 Primary osteoarthritis, left shoulder
CPT/HCPCS: 73030

== ENCOUNTER → 2024-06-29 11:50 | Outpatient (CLI) | payer MEDICARE, SELFPAY ==
[2024-06-29 13:12] LABS: Hemoglobin 13.2 g/dL (13.5-17.5); Mean Corpuscular HGB Conc 33.8 % (30-36); Mean Corpuscular Hemoglobin 30.8 PG (26-34); Mean Corpuscular Volume 91.4 fL (80-100); Platelet Count 210 X10^3/uL (150-400); Red Blood Cell Count 4.27 X10^6/uL (4.5-5.9); Red Cell Distribution Width 13.7 % (11.6-14.8)
[2024-06-29 13:41] LABS: Alanine Aminotransferase 28 IU/L (<50); Albumin 4.3 g/dL (3.5-5.0); Alkaline Phosphatase 77 U/L (38-126); Aspartate Aminotransferase 25 IU/L (17-59); BUN Creatinine Ratio 33.3 (6-22); Bilirubin Total 0.5 mg/dL (0.2-1.3); Blood Urea Nitrogen 29 mg/dL (9-20); Calcium 9.9 mg/dL (8.4-10.2); Carbon Dioxide 28 mmol/L (22-32); Chloride 105 mmol/L (98-107); Cholesterol 203 mg/dL (140-199); Estimated Glomerular Filt Rate > 60 mL/min (>60); Globulin 2.1 g/dL (1.7-4.1); Glucose 97 mg/dL (70-99); HDL Cholesterol 44 mg/dL (40-60); HEMOLYSIS < 15 (0-50); LDL Cholesterol Calculated 136 mg/dL (<100); Potassium 4.1 mmol/L (3.4-5.1); Sodium 141 mmol/L (137-145); Total Protein 6.4 g/dL (6.3-8.2); Triglycerides 116 mg/dL (35-150)
[2024-06-29 13:48] LABS: Neutrophils Absolute Manual 6480 /uL (3000-5900); Total Cells Counted 100
[2024-06-29 13:49] LABS: RBC Morphology Normal Morphology
[2024-06-29 14:05] LABS: TSH w/ Reflex to FT4 0.83 uIU/mL (0.47-4.68)
[2024-06-29 14:09] LABS: Prostate Specific Antigen 0.997 ng/mL (0.10-4.00)
== END ==
PROVIDERS: Family Provider Pediatrics; PCP Internal Medicine; Referring Provider Internal Medicine; Visit Provider Internal Medicine
DX: E78.2 Mixed hyperlipidemia (principal); N40.1 Benign prostatic hyperplasia with lower urinary tract symptoms; I87.2 Venous insufficiency (chronic) (peripheral); N13.8 Other obstructive and reflux uropathy
CPT/HCPCS: 36415; 80053; 80061; 84153; 84443; 85025